=== PATIENT | male | born 1965 | race Caucasian/White ===

== ENCOUNTER 2019-07-23 06:51 | Emergency (ER) | payer OTHER, MEDICAID ==
[2019-07-23] MEDS ORDERED: Sodium Chloride 0.9% 1000 ML 1,000 ML IV STA (07:17)
[2019-07-23] MEDS ORDERED: Zofran 4 MG/2 ML VIAL IV ONE (07:19)
--- NOTE | 2019-07-23 07:21 | ERPHSYRPT ---
- History of Present Illness Time Seen by Provider: 07/23/19 07:17 Source: patient Exam Limitations: no limitations Patient Subjective Stated Complaint: cough, fever, sore throat, vomiting for about 4 days Triage Nursing Assessment: Pt walked into the ER, right lungs wheezy, vitals wnl , denies pain, denies diarrhea, last vomited at 0400, last food intake yesterday at 1100 Physician History: The patient is a 53-year-old male with a past medical history significant for insulin-dependent diabetes mellitus presents with a chief complaint of a subjective fever, cough, sore throat, headache, myalgias as her last Sunday, July 19, 2019. He also reports having nausea and vomiting over the last 12-24 hours. States that his fever has since resolved the last couple days in addition to his sore throat headache over he is concerned because of his nausea and inability to eat or drink given his history of diabetes. His immunizations are reportedly up-to-date includes influenza vaccine in addition to his pneumococcal vaccine. Smoking. States that last night he checked his for glucose and got a reading of 400. He's been taking any insulin today nor has he had any breakfast. He states that he tried to drink alcohol last night to sober ears but was unable to do so because of his nausea. His primary care provider is elevated at the [facility]. Timing/Duration: other (07/19/19) Cough Quality/Degree: dry cough Associated Symptoms: fever, chills, cough, headache, nasal congestion, No shortness of breath Allergies/Adverse Reactions: No Known Drug Allergies Allergy (Verified 07/23/19 07:07) Home Medications: Aspirin EC 81 mg [Ecotrin 81 mg] 81 mg PO DAILY 07/23/19 [History] Insulin Aspart [NovoLOG Insulin] 10 unit SQ QAM 07/23/19 [History] Insulin Glargine [Lantus Insulin] 32 unit SQ QAM 07/23/19 [History] Omeprazole Magnesium [Prilosec Otc] 20 mg PO DAILY 07/23/19 [History] Hx Influenza Vaccination/Date Given: Yes - Review of Systems Constitutional: Fever, Chills, No Weakness Eyes: No Eye Pain, No Eye Redness, No Photophobia, No Vision Changes Ears, Nose, & Throat: Nose Congestion, Throat Pain, No Ear Pain Respiratory: Cough, No Dyspnea, No Dyspnea on Exertion (NI), No Stridor, No Wheezing Cardiac: No Chest Pain, No Edema, No Palpitations, No Syncope, No Orthopnea Abdominal/Gastrointestinal: Nausea, Vomiting, No Abdominal Pain, No Constipation , No Hematemesis, No Hematochezia, No Melena Genitourinary Symptoms: No Dysuria, No Frequency, No Hematuria, No Hesitancy Musculoskeletal: Myalgias Skin: No Symptoms Neurological: No Symptoms Psychological: No Symptoms All Other Systems: Reviewed and Negative - Past Medical History Pertinent Past Medical History: Yes Endocrine Medical History: Diabetes Type II - Past Surgical History Past Surgical History: No - Social History Smoking Status: Former smoker Exposure to second hand smoke: No Drug Use: none Patient Lives Alone: Yes - Nursing Vital Signs Nursing Vital Signs: Initial Vital Signs Temperature 98.8 F 07/23/19 06:59 Pulse Rate 84 07/23/19 06:59 Blood Pressure 131/79 07/23/19 06:59 O2 Sat by Pulse Oximetry 95 07/23/19 06:59 Pain Scale Pain Intensity 4 - Physical Exam General Appearance: no apparent distress Eye Exam: PERRL/EOMI, eyes nml inspection Ears, Nose, Throat Exam: normal ENT inspection, TMs normal, pharynx normal, moist mucous membranes, No TM abnormal (R), No TM abnormal (L), No pharyngeal erythema, No tonsillar exudate Neck Exam: normal inspection, supple, No non-tender Respiratory Exam: normal breath sounds, airway intact, crackles/rales, No chest tenderness, No respiratory distress, No accessory muscle use Cardiovascular Exam: regular rate/rhythm, normal heart sounds, normal peripheral pulses, capillary refill <2 sec, No murmur, No friction rub, No gallop, No tachycardia Gastrointestinal/Abdomen Exam: soft Back Exam: normal inspection Extremity Exam: normal inspection Neurologic Exam: alert, oriented x 3 Skin Exam: normal color, warm, dry, No rash Lymphatic Exam: No adenopathy SpO2 Interpretation: normal SpO2: 95 O2 Delivery: Room Air - Course Nursing assessment & vital signs reviewed: Yes - Radiology Exams Chest X-ray Interpretation: Reviewed by me, Teleradiologist Report, Negative Ordered Tests: Medication Summary Discontinued Medications Generic Name Dose Route Start Last Admin Trade Name Freq PRN Reason Stop Dose Admin Sodium Chloride 1,000 mls @ 999 mls/hr 07/23/19 07:17 07/23/19 09:46 Sodium Chloride 0.9% 1000 Ml IV 07/23/19 08:17 Infused .Q1H1M STA Infusion Sodium Chloride Confirm 07/23/19 07:32 Sodium Chloride 0.9% 1000 Ml Administered 07/23/19 07:33 Dose 1,000 mls @ ud .ROUTE .STK-MED ONE Ondansetron HCl 4 mg 07/23/19 07:19 07/23/19 07:34 Zofran 4 Mg/2 Ml Vial IV 07/23/19 07:20 4 mg STAT ONE Administration Ondansetron HCl Confirm 07/23/19 07:32 Zofran 4 Mg/2 Ml Vial Administered 07/23/19 07:33 Dose 4 mg .ROUTE .STK-MED ONE Lab/Rad Data: Laboratory Result Diagrams 07/23/19 07:40 Laboratory Results 07/23/19 07/23/19 Range/Units 08:00 07:40 Sodium 133 L (137-145) mmol/L Potassium 3.9 (3.5-5.1) mmol/L Chloride 100 (98-107) mmol/L Carbon Dioxide 24 (22-30) mmol/L Anion Gap 13.2 (5-15) MEQ/L BUN 10 (9-20) mg/dL Creatinine 0.70 (0.66-1.25) mg/dL Estimated GFR > 60.0 ML/MIN Glucose 263 H (74-106) mg/dL Calcium 8.9 (8.4-10.2) mg/dL Urine Color YELLOW (YELLOW) Urine Appearance CLEAR (CLEAR) Urine pH 6.0 (5-6) Ur Specific [place] 1.022 (1.005-1.025) Urine Protein 30 (Negative) Urine Ketones TRACE (NEGATIVE) Urine Blood NEGATIVE (0-5) Abram/ul Urine Nitrite NEGATIVE (NEGATIVE) Urine Bilirubin NEGATIVE (NEGATIVE) Urine Urobilinogen 4 (0-1) mg/dL Ur Leukocyte Esterase NEGATIVE (NEGATIVE) Urine WBC (Auto) NONE (0-5) /HPF Urine RBC (Auto) NONE (0-2) /HPF U Epithel Cells (Auto) NONE (FEW) /HPF Urine Bacteria (Auto) NONE SEEN (NEGATIVE) /HPF Urine Mucus (Auto) SLIGHT (NEGATIVE) /HPF Urine Culture Reflexed NO (NO) Urine Glucose >=500 (NEGATIVE) mg/dL - Progress Progress: improved, unchanged Progress Note: 07/23/19 08:27 corrected sodium is 136. Blood Culture(s) Obtained: No Antibiotics given: No Counseled pt/family regarding: lab results, diagnosis, need for follow-up, rad results - Departure Departure Disposition: Home Clinical Impression: Nausea and vomiting, Viral URI with cough, Hyperglycemia Condition: Good Critical Care Time: No Referrals: DOCTOR,NO FAMILY [Primary Care Provider] - Instructions: Viral Upper Respiratory Infection, Adult (DC), Nausea and Vomiting, Adult (DC) Additional Instructions: please call and schedule an appointment with her primary care provider as needed. Please take the medication as prescribed including her insulin. Please eat for taking her insulin and check her sugar regularly throughout the day to make sure you are not becoming hypoglycemic. Plan of Treatment: nontoxic in appearance. The patient is outside of the 48 hr window for antiviral therapy for influenza and therefore will not test and recommend symptomatic treatment with antipyretics, antiemetics, and fluids given he is likely suffering from influenza. He was instructed to return if his symptoms become worse, specifically respiratory symptoms. He agrees with and verbally understood the discharge plan. Prescriptions: Ondansetron [Ondansetron Odt] 4 mg PO Q6-8HPRN PRN #20 tab.rapdis PRN Reason: Nausea/Vomiting
[2019-07-23] MEDS ORDERED: Sodium Chloride 0.9% 1000 ML 1,000 ML ONE (07:32)
[2019-07-23] MEDS ORDERED: Zofran 4 MG/2 ML VIAL ONE (07:32)
[2019-07-23 08:00] VITALS: PULSE 70
[2019-07-23 08:01] LABS: ANION GAP 13.2 MEQ/L (5-15); BLOOD UREA NITROGEN 10 mg/dL (9-20); CHLORIDE 100 mmol/L (98-107); Calcium 8.9 mg/dL (8.4-10.2); Carbon Dioxide 24 mmol/L (22-30); Glucose 263 mg/dL (74-106); Potassium 3.9 mmol/L (3.5-5.1); SODIUM 133 mmol/L (137-145)
[2019-07-23 08:04] LABS: Appearance CLEAR (CLEAR); Bilirubin NEGATIVE (NEGATIVE); Blood NEGATIVE Ery/ul (0-5); Glucose >=500 mg/dL (NEGATIVE); Ketones TRACE (NEGATIVE); Leukocyte Esterase NEGATIVE (NEGATIVE); Mucus SLIGHT /HPF (NEGATIVE); Nitrite NEGATIVE (NEGATIVE); Protein,Urine Dip 30 (Negative); Specific Gravity 1.022 (1.005-1.025); Urobilinogen 4 mg/dL (0-1)
[2019-07-23 08:07] LABS: Bacteria NONE SEEN /HPF (NEGATIVE)
[2019-07-23 10:33] VITALS: BP 141/89
--- NOTE | 2019-07-23 19:09 | XRAY ---
Indication: Cough. Comparison: None PA/lateral chest clear with incidental right nipple shadow. Heart is not enlarged. Bony thorax intact with mild degenerative changes. Version: Nonacute chest. Comment: Preliminary interpretation was made by [facility]. No critical discrepancy.
[2019-07-24 15:57] VITALS: O2SAT 95
== END 2019-07-23 10:46 | disposition home or self-care (01) ==
LOC: ED 06:51
DX: J06.9 Acute upper respiratory infection, unspecified (principal); R05 Cough; R11.10 Vomiting, unspecified; R11.2 Nausea with vomiting, unspecified; E11.65 Type 2 diabetes mellitus with hyperglycemia; Z79.899 Other long term (current) drug therapy
CPT/HCPCS: 36415; 71046; 80048; 81001; 82962; 96360; 96374; 99284; J2405

== ENCOUNTER 2021-10-15 12:19 | Emergency (ER) | payer MEDICAID, OTHER ==
[2021-10-15] MEDS ORDERED: XYLOCAINE 1% HCL 20 ML MDV IJ ONE (12:20)
[2021-10-15] MEDS ORDERED: Rocephin 1000 MG INJ IM ONE (12:41)
[2021-10-15] MEDS ORDERED: Zithromax 250 MG TABLET PO ONE (12:47)
[2021-10-15] MEDS ORDERED: Rocephin 1000 MG INJ ONE (12:48)
[2021-10-15] MEDS ORDERED: Zithromax 250 MG TABLET ONE (12:48)
--- NOTE | 2021-10-15 12:57 | ERPHSYRPT ---
- History of Present Illness Time Seen by Provider: 10/15/21 12:55 Source: patient Exam Limitations: no limitations Patient Subjective Stated Complaint: To er c/o partner was called with results her gonnorhea was posititve Triage Nursing Assessment: pt arrives p/w/d resp easy no difficulties Physician History: To er c/o partner was called with results her gonnorhea was posititve Pain Radiation: none Severity of Pain-Max: none Severity of Pain-Current: none Modifying Factors: Improves With: nothing Associated Symptoms: denies symptoms Prior abdominal problems: none Sexual intercourse history: multiple partners, known exposure to STD Allergies/Adverse Reactions: No Known Drug Allergies Allergy (Verified 10/15/21 12:35) Home Medications: Aspirin EC 81 mg [Ecotrin 81 mg] 81 mg PO DAILY 07/23/19 [History] Insulin Aspart [NovoLOG Insulin] 10 unit SQ QAM 07/23/19 [History] Insulin Glargine [Lantus Insulin] 32 unit SQ QAM 07/23/19 [History] Omeprazole Magnesium [Prilosec Otc] 20 mg PO DAILY 07/23/19 [History] Hx Influenza Vaccination/Date Given: Yes Travel Risk - International Travel Have you traveled outside of the country in past 3 weeks: No - Coronavirus Screening Are you exhibiting any of the following symptoms?: No Close contact with a COVID-19 positive Pt in past 14-21 Days: No - Vaccine Status Have you recieved a Covid-19 vaccination: Yes 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: 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 - Vaccination Dates Date of 2cond Vaccination (if applicable): june 2021 - Past Medical History Pertinent Past Medical History: Yes Endocrine Medical History: Diabetes Type II - Past Surgical History Past Surgical History: No - Social History Smoking Status: Former smoker Exposure to second hand smoke: No Drug Use: none Patient Lives Alone: Yes - Review of Systems Constitutional: No Fever, No Chills Eyes: No Symptoms Ears, Nose, & Throat: No Symptoms Respiratory: No Cough, No Dyspnea Cardiac: No Chest Pain, No Edema, No Syncope Abdominal/Gastrointestinal: No Abdominal Pain, No Nausea, No Vomiting, No Diarrhea Genitourinary Symptoms: No Dysuria Musculoskeletal: No Back Pain, No Neck Pain Skin: No Rash Neurological: No Dizziness, No Focal Weakness, No Sensory Changes Psychological: No Symptoms Endocrine: No Symptoms All Other Systems: Reviewed and Negative - Nursing Vital Signs Nursing Vital Signs: Pain Scale Pain Intensity 0 - Physical Exam General Appearance: no apparent distress, alert Eye Exam: PERRL/EOMI Ears, Nose, Throat Exam: pharynx normal, moist mucous membranes Neck Exam: normal inspection, supple Respiratory Exam: normal breath sounds, lungs clear Cardiovascular Exam: regular rate/rhythm, No edema Gastrointestinal/Abdomen Exam: soft, No tenderness Back Exam: normal inspection, No CVA tenderness Extremity Exam: normal inspection, normal range of motion, No pedal edema Neurologic Exam: alert, oriented x 3, cooperative, sensation nml, No motor deficits Skin Exam: normal color, warm, dry, No rash - Course Nursing assessment & vital signs reviewed: Yes Ordered Tests: Medication Summary Discontinued Medications Generic Name Dose Route Start Last Admin Trade Name Susy PRN Reason Stop Dose Admin Azithromycin 1,000 mg 10/15/21 12:47 Azithromycin 250 Mg Tablet PO 10/15/21 12:48 STAT ONE Azithromycin Confirm 10/15/21 12:48 Azithromycin 250 Mg Tablet Administered 10/15/21 12:49 Dose 1,000 mg .ROUTE .STK-MED ONE Ceftriaxone Sodium 1,000 mg 10/15/21 12:41 Ceftriaxone Sodium 1000 Mg Inj Vial IM 10/15/21 12:42 STAT ONE Ceftriaxone Sodium Confirm 10/15/21 12:48 Ceftriaxone Sodium 1000 Mg Inj Vial Administered 10/15/21 12:49 Dose 1,000 mg .ROUTE .STK-MED ONE - Progress Progress: unchanged Counseled pt/family regarding: diagnosis, need for follow-up - Departure Departure Disposition: Home Clinical Impression: Exposure to gonorrhea Condition: Stable Critical Care Time: No Referrals: DOCTOR,NO FAMILY [Primary Care Provider] - Follow Up with PCP/3 days Instructions: Screening for Sexually Transmitted Infections, Gonorrhea (DC), Chlamydia and Gonorrhea Additional Instructions: Discharge/Care Plan RADHA CUEVAS was seen on 10/15/21 in the Emergency Room. The patient was counseled regarding Diagnosis,Lab results, Imaging studies, need for follow up and when to return to the Emergency Room. Prescriptions given: Discharge Note I have spoken with the patient and/or caregivers. I have explained the patient's condition, diagnosis and treatment plan based on the information available to me at this time. I have answered the patient's and/or caregiver's questions and addressed any concerns. The patient and/or caregivers have as good understanding of the patient's diagnosis, condition and treatment plan as can be expected at this point. The vital signs have been stable. The patient's condition is stable and appropriate for discharge from the emergency department. The patient will pursue further outpatient evaluation with the primary care physician or other designated or consulting physician as outlined in the discharge instructions. The patient and/or caregivers are agreeable to this plan of care and follow-up instructions have been explained in detail. The patient and/or caregivers have received these instruction. The patient/and or caregivers are aware that any significant change in condition or worsening of symptoms should prompt an immediate return to this or the closest emergency department or call 911. RADHA CUEVAS was seen on 10/15/21 n the Emergency Room. At that time you were treated for an emergent condition, during your visit Laboratory, Radiology and/or other procedures may have been ordered. It is very important that you follow-up with your Primary Care Physician NO FAMILY DOCTOR within the next 24- 48 hours to review your Emergency Room visit and the final results of testing that was ordered. Some test results such as Urine Cultures, Blood Cultures, and other cultures if ordered will not be finalized for 24-48 hours. If you do not have a Primary Care Provider please call the medical records department at [phone] ext [phone] to obtain a copy of your results or you may sign into our patient portal to obtain these results by visiting us @ [email or web address] and completing the following steps: 1. Click on the Patient Portal link 2. Click the Patient Self Enrollment Link to complete the enrollment form and entering your 3. Once the enrollment form is completed you will receive an email with a temporary ID and password at the email address you provided. 4. Next choose a user name and password. Your user name must be at least 4 characters long and your password must be at least 4 characters long. 5. Choose a security question from the list and provide your answer to the question. If you already have signed into the Health Portal you may access your Health Care Information 12/02 by the following steps: 1. Login to our website @ [email or web address] 2. Enter your original user name and password. FAQS The [facility] Health Portal is an online tool that contains your Lab Results, Radiology Reports, Visit History, Discharge Instructions and Health Summary Lab and Radiology Results will not be available for 72 hours on the portal. The Portal is a secure site, passwords are encryted and URLs are re-written so they cannot be copied and pasted. You and authorized family members are the only ones who can access your Portal. Also there is a timeout feature that protects your information if you leave the Portal page open. If you have technical difficulty please use the Contact Us link on the page this will allow you to submit any questions you have regarding the Portal or you may contact the Medical Record Department at [phone].
[2021-10-15 13:15] VITALS: BP 139/74; PULSE 89
== END 2021-10-15 13:16 | disposition home or self-care (01) ==
LOC: ED 12:19
DX: Z20.2 Contact with and (suspected) exposure to infections with a predominantly sexual mode of transmission (principal); E11.9 Type 2 diabetes mellitus without complications; Z79.4 Long term (current) use of insulin
CPT/HCPCS: 96372; 99283; J0696; A9270-GY

== ENCOUNTER 2022-01-12 23:00 | Inpatient (IN) | payer OTHER ==
[2022-01-12] MEDS ORDERED: TYLENOL EXTRA STRENGTH 500 MG ONE (23:08)
[2022-01-12] MEDS ORDERED: Sodium Chloride 0.9% 1000 ML 1,000 ML IV STA (23:12)
[2022-01-12] MEDS ORDERED: Zofran 4 MG/2 ML VIAL IV ONE (23:12)
[2022-01-12] MEDS ORDERED: TYLENOL EXTRA STRENGTH 500 MG PO ONE (23:15)
[2022-01-12] MEDS ORDERED: Sodium Chloride 0.9% 1000 ML 1,000 ML ONE (23:17)
--- NOTE | 2022-01-12 23:20 | ERPHSYRPT ---
- History of Present Illness Time Seen by Provider: 01/12/22 23:11 Source: patient Exam Limitations: no limitations Physician History: 56-year-old male with a history of diabetes mellitus presented in the ER with 5- day history of having off-and-on abdominal pain with nausea and vomiting which is improved but still have cough productive of clear to yellow sputum with ge neralized body aches fatigue tiredness. Patient reports he is not able to eat or drink anything and is having weakness to the point that he can hardly get up and ambulate. On EMS arrival patient has a blood sugar of 591 and has not been taking his antidiabetic medication for the last few days. Timing/Duration: day(s) (5), gradual onset, worse Severity: moderate Associated Symptoms: nausea, vomiting, abdominal pain, cough, chills, fever, loss of appetite, malaise, weakness Allergies/Adverse Reactions: No Known Drug Allergies Allergy (Verified 01/13/22 04:39) Home Medications: Aspirin EC 81 mg [Ecotrin 81 mg] 81 mg PO DAILY 07/23/19 [History] Insulin Aspart [NovoLOG Insulin] 10 unit SQ QAM 07/23/19 [History] Insulin Glargine [Lantus Insulin] 32 unit SQ QAM 07/23/19 [History] Omeprazole Magnesium [Prilosec Otc] 20 mg PO DAILY 07/23/19 [History] Cetirizine HCl [Zyrtec] 10 mg PO DAILY 01/13/22 [History] Fluticasone Propionate [Flonase NASAL] 2 spray NS DAILY 01/13/22 [History] Lisinopril 10 mg [Zestril 10 MG] 5 mg PO DAILY 01/13/22 [History] Simvastatin 20 mg PO QHS 01/13/22 [History] Hx Influenza Vaccination/Date Given: Yes Travel Risk - Vaccine Status Have you recieved a Covid-19 vaccination: Yes Bundle Breaker: Moderna - Vaccination Dates Date of 2cond Vaccination (if applicable): june 2021 - Review of Systems Constitutional: Fever, Chills, Fatigue, Weakness Eyes: No Symptoms Ears, Nose, & Throat: No Symptoms Respiratory: Cough, Wheezing Cardiac: No Symptoms Abdominal/Gastrointestinal: Abdominal Pain, Nausea, Vomiting Genitourinary Symptoms: No Symptoms Musculoskeletal: Myalgias Skin: No Symptoms Neurological: No Symptoms Psychological: No Symptoms Endocrine: No Symptoms Hematologic/Lymphatic: No Symptoms Immunological/Allergic: No Symptoms - Past Medical History Pertinent Past Medical History: Yes Endocrine Medical History: Diabetes Type II - Past Surgical History Past Surgical History: No - Social History Smoking Status: Former smoker Exposure to second hand smoke: No Drug Use: none Patient Lives Alone: Yes - Nursing Vital Signs Nursing Vital Signs: Initial Vital Signs Temperature 100.1 F 01/12/22 23:17 Pulse Rate 97 H 01/12/22 23:17 Respiratory Rate 24 01/12/22 23:17 Blood Pressure 132/90 01/12/22 23:17 O2 Sat by Pulse Oximetry 97 01/12/22 23:17 Pain Scale Pain Intensity 0 - Physical Exam General Appearance: no apparent distress, alert Eye Exam: PERRL/EOMI, eyes nml inspection Ears, Nose, Throat Exam: normal ENT inspection, dry mucous membranes, pharyngeal erythema Neck Exam: normal inspection, non-tender, supple, full range of motion Respiratory Exam: normal breath sounds, rhonchi, wheezing Cardiovascular Exam: normal heart sounds, tachycardia Gastrointestinal/Abdomen Exam: soft, normal bowel sounds, tenderness (Mild gene ralized) Back Exam: normal inspection, normal range of motion Extremity Exam: normal inspection, normal range of motion Neurologic Exam: alert, oriented x 3, cooperative Skin Exam: normal color SpO2 Interpretation: normal SpO2: 95 O2 Delivery: Room Air - Course EKG Interpreted by Me: RATE ([id number]), Sinus Tach, NORMAL AXIS, NORMAL INTERVALS, Q- wave, Non-specific ST Changes Ordered Tests: Medication Summary Generic Name Dose Route Start Last Admin Trade Name Freq PRN Reason Stop Dose Admin Acetaminophen 650 mg 01/13/22 03:40 Acetaminophen 325 Mg Tablet PO 02/12/22 03:39 Q4H PRN PRN PAIN AND/OR FEVER Albuterol Sulfate 4 puff 01/14/22 14:34 Albuterol Common Canister Inhaler IH 02/13/22 14:33 Q4H PRN PRN SHORTNESS OF BREATH/WHEEZING Aspirin 81 mg 01/13/22 13:00 01/15/22 09:21 Aspirin 81 Mg Tablet.Ec PO 02/12/22 12:59 81 mg DAILY MORIAH Administration Benzonatate 200 mg 01/13/22 06:44 01/13/22 08:20 Benzonatate 100 Mg Capsule PO 02/12/22 06:43 200 mg Q6H PRN PRN Administration COUGH Chlorphenir/Hydrocodone Polistirex 5 ml 01/13/22 12:22 Hydrocodone/Chlorphen P-Stirex 1 Ml Monie.Er.12h PO 02/12/22 12:21 [id number] PRN Dexamethasone Sodium Phosphate 8 mg 01/13/22 13:00 01/15/22 09:21 Dexamethasone Sod Phosphate 4 Mg/Ml Ml IV 01/22/22 10:01 8 mg DAILY MORIAH Administration Diphenhydramine/Hydrocorti/Nystatin 30 ml 01/14/22 14:30 01/15/22 10:56 Nystatin/Tcn/Hc/Diphenhydramin 237 Ml Bottle PO 02/13/22 14:29 30 ml Q6HT MORIAH Administration Enoxaparin Sodium 40 mg 01/13/22 10:00 01/15/22 09:21 Enoxaparin Sodium 40 Mg/0.4 Ml Syringe SQ 02/12/22 09:59 40 mg DAILY MORIAH Administration Fluticasone Propionate 0 gm 01/13/22 13:00 01/15/22 09:18 Fluticasone Propionate 16 Gm Bottle Nasal [place] NS 02/12/22 12:59 1 gm DAILY MORIAH Administration Guaifenesin 1,200 mg 01/15/22 10:00 01/15/22 10:55 Guaifenesin 600 Mg Tablet Er PO 02/14/22 09:59 1,200 mg BID MORIAH Administration Piperacillin Sod/Tazobactam 100 mls @ 200 mls/hr 01/13/22 06:00 01/15/22 10:55 Sod 3.375 gm/ Sodium Chloride IV 01/17/22 05:59 200 mls/hr Q6HT MORIAH Administration Remdesivir 100 mg/ Sodium 100 mls @ 100 mls/hr 01/14/22 10:00 01/15/22 09:18 Chloride IV 01/17/22 10:59 100 mls/hr DAILY MORIAH Administration Potassium Chloride/Sodium Chloride 1,000 mls @ 120 mls/hr 01/14/22 00:30 01/15/22 10:55 Sodium Chloride 0.9% W/ 20 Meq Kcl/Liter IV 02/13/22 00:29 120 mls/hr .Q8H20M MORIAH Administration Insulin Glargine 32 unit 01/13/22 10:00 01/15/22 09:22 Insulin Glargine 1 Unit SQ 02/12/22 09:59 32 unit QAM MORIAH Administration Insulin Human Lispro 0 unit 01/13/22 08:00 01/15/22 12:31 Insulin Lispro 1 Unit SQ 02/12/22 07:59 9 unit UD PRN Administration HYPERGLYCEMIA Insulin Human Lispro 10 unit 01/13/22 13:00 01/15/22 12:31 Insulin Lispro 1 Unit SQ 02/12/22 12:59 10 unit TIDWM MORIAH Administration Lisinopril 5 mg 01/13/22 13:00 01/15/22 09:19 Lisinopril 5 Mg Tablet PO 02/12/22 12:59 5 mg DAILY MORIAH Administration Loratadine 10 mg 01/13/22 13:00 01/15/22 09:21 Loratadine 10 Mg Tablet PO 02/12/22 12:59 10 mg DAILY MORIAH Administration Lorazepam 1 mg 01/13/22 12:22 Lorazepam 1 Mg Tablet PO 02/12/22 12:21 Q4H PRN PRN ANXIETY/SLEEP Lorazepam 1 mg 01/13/22 12:22 Lorazepam 2 Mg/1 Ml 2 Mg Vial IV 02/12/22 12:21 Q4H PRN PRN ANXIETY/SLEEP Metoclopramide HCl 5 mg 01/13/22 14:21 01/14/22 20:06 Metoclopramide Hcl 10 Mg Tablet PO 02/12/22 14:20 5 mg Q6H PRN PRN Administration HICCUPS Morphine Sulfate 2 mg 01/13/22 03:40 Morphine Sulfate 2 Mg/Ml Inj IV 01/18/22 03:39 Q4H PRN PRN PAIN Ondansetron HCl 4 mg 01/13/22 03:40 Ondansetron Hcl 4 Mg/2 Ml Vial IV 02/12/22 03:39 Q6H PRN PRN NAUSEA/VOMITING Pantoprazole Sodium 40 mg 01/14/22 10:00 01/15/22 09:21 Protonix (Pantoprazole) 40 Mg Tablet PO 02/13/22 09:59 40 mg DAILY MORIAH Administration Potassium Chloride 25 meq 01/14/22 10:00 01/15/22 09:19 Potassium Chloride Tab 10 Meq Tab PO 02/13/22 09:59 25 meq DAILY MORIAH Administration Simvastatin 20 mg 01/13/22 22:00 01/14/22 22:42 Simvastatin 20 Mg Tablet PO 02/12/22 21:59 20 mg QHS MORIAH Administration Discontinued Medications Generic Name Dose Route Start Last Admin Trade Name Micheletq PRN Reason Stop Dose Admin Acetaminophen Confirm 01/12/22 23:08 Acetaminophen 500 Mg Tablet Administered 01/12/22 23:09 Dose 1,000 mg .ROUTE .STK-MED ONE Acetaminophen 1,000 mg 01/12/22 23:15 01/12/22 23:16 Acetaminophen 500 Mg Tablet PO 01/12/22 23:16 1,000 mg STAT ONE Administration Albuterol Sulfate 4 puff 01/13/22 07:00 01/14/22 14:33 Albuterol Common Canister Inhaler IH 02/12/22 06:59 Not Given QIDRT MORIAH Diphenhydramine/Hydrocorti/Nystatin 30 ml 01/14/22 12:30 Nystatin/Tcn/Hc/Diphenhydramin 237 Ml Bottle PO 02/13/22 12:29 Q6H MORIAH Sodium Chloride 1,000 mls @ 999 mls/hr 01/12/22 23:12 01/13/22 00:59 Sodium Chloride 0.9% 1000 Ml IV 01/13/22 00:12 Infused .Q1H1M STA Infusion Sodium Chloride Confirm 01/12/22 23:17 Sodium Chloride 0.9% 1000 Ml Administered 01/12/22 23:18 Dose 1,000 mls @ ud .ROUTE .STK-MED ONE Piperacillin Sod/Tazobactam 100 mls @ 200 mls/hr 01/13/22 00:25 01/13/22 00:35 Sod 3.375 gm/ Sodium Chloride IV 01/13/22 00:54 200 mls/hr STAT ONE Administration Insulin Human Regular 100 unit 100 mls @ 7.11 mls/hr 01/13/22 00:26 01/13/22 06:30 / Sodium Chloride IV 02/12/22 00:25 0 unit/kg/hr .Q14H4M PRN 0 mls/hr DKA/HYPERGLYCEMIA Titration Protocol 0.1 UNIT/KG/HR Sodium Chloride Confirm 01/13/22 00:33 Sodium Chloride 100ml Mini-Bag Plus Administered 01/13/22 00:34 Dose 100 mls @ ud IV .STK-MED ONE Sodium Chloride Confirm 01/13/22 00:33 Sodium Chloride 0.9% Administered 01/13/22 00:34 Dose 100 mls @ ud .ROUTE .STK-MED ONE Remdesivir 200 mg/ Sodium 250 mls @ 125 mls/hr 01/13/22 00:59 01/13/22 06:20 Chloride IV 01/13/22 02:58 125 mls/hr ONCE ONE Administration Levofloxacin/Dextrose 750 mg in 150 mls @ 100 mls/hr 01/13/22 00:59 01/13/22 03:03 Levofloxacin 750mg/150ml D5w IV 01/13/22 02:28 Infused STAT STA Infusion Sodium Chloride Confirm 01/13/22 01:14 Sodium Chloride 0.9% 1000 Ml Administered 01/13/22 01:15 Dose 1,000 mls @ ud .ROUTE .STK-MED ONE Levofloxacin/Dextrose Confirm 01/13/22 01:25 Levofloxacin 750mg/150ml D5w Administered 01/13/22 01:26 Dose 750 mg in 150 mls @ ud IV .STK-MED ONE Levofloxacin/Dextrose 500 mg in 100 mls @ 100 mls/hr 01/13/22 22:00 01/13/22 22:16 Levofloxacin 500mg/100ml D5w IV 02/12/22 21:59 100 mls/hr HS MORIAH Administration Sodium Chloride 1,000 mls @ 200 mls/hr 01/13/22 05:30 Sodium Chloride 0.9% 1000 Ml IV 02/12/22 05:29 .Q5H MORIAH Sodium Chloride 1,000 mls @ 150 mls/hr 01/13/22 05:30 01/13/22 22:55 Sodium Chloride 0.9% 1000 Ml IV 02/12/22 05:29 Infused .Q6H40M MORIAH Infusion Sodium Chloride Confirm 01/13/22 05:48 Sodium Chloride 0.9% 250 Ml Administered 01/13/22 05:49 Dose 250 mls @ ud IV .STK-MED ONE Sodium Chloride Confirm 01/13/22 07:05 Sodium Chloride 100ml Mini-Bag Plus Administered 01/13/22 07:06 Dose 100 mls @ ud IV .STK-MED ONE Remdesivir 100 mg/ Sodium 100 mls @ 100 mls/hr 01/13/22 10:00 01/13/22 10:55 Chloride IV 01/16/22 10:59 Not Given DAILY MORIAH Potassium Chloride 20 meq in 100 mls @ 50 mls/hr 01/13/22 15:53 01/13/22 16:15 Potassium Chloride 20 Meq In Water 100ml IV 01/13/22 17:52 50 mls/hr STAT ONE Administration Insulin Human Regular Confirm 01/13/22 00:33 Insulin Regular, Human 1 Unit Administered 01/13/22 00:34 Dose 100 unit .ROUTE .STK-MED ONE Ondansetron HCl 4 mg 01/12/22 23:12 01/12/22 23:29 Ondansetron Hcl 4 Mg/2 Ml Vial IV 01/12/22 23:13 4 mg STAT ONE Administration Ondansetron HCl Confirm 01/12/22 23:25 Ondansetron Hcl 4 Mg/2 Ml Vial Administered 01/12/22 23:26 Dose 4 mg .ROUTE .STK-MED ONE Pantoprazole Sodium 40 mg 01/13/22 10:00 01/13/22 10:13 Pantoprazole 40 Mg Vial IV 02/12/22 09:59 40 mg Q24H10 MORIAH Administration Piperacillin Sod/Tazobactam Sod Confirm 01/13/22 00:33 Piperacillin/Tazobactam Sodium 3.375 Gm Vial Administered 01/13/22 00:34 Dose 3.375 gm IV .STK-MED ONE Piperacillin Sod/Tazobactam Sod Confirm 01/13/22 07:04 Piperacillin/Tazobactam Sodium 3.375 Gm Vial Administered 01/13/22 07:05 Dose 3.375 gm IV .STK-MED ONE Potassium Chloride 25 meq 01/13/22 15:51 01/13/22 16:14 Potassium Chloride Tab 10 Meq Tab PO 01/13/22 15:52 25 meq STAT ONE Administration Remdesivir Confirm 01/13/22 05:48 Remdesivir 100 Mg Vial Administered 01/13/22 05:49 Dose 200 mg IV .STK-MED ONE Lab/Rad Data: Laboratory Result Diagrams 01/12/22 23:12 06/23/22 23:12 Laboratory Results 01/13/22 01/13/22 01/13/22 Range/Units 03:27 02:28 02:23 WBC (4.0-10.5) x10^3/uL RBC (4.1-5.6) x10^6/uL Hgb (12.5-18.0) g/dL Hct (42-50) % MCV (78-100) fL MCH (26-32) pg MCHC (32-36) g/dL RDW (11.5-14.0) % Plt Count (150-450) x10^3/uL MPV (7.5-11.0) fL Segmented Neutrophils (36.-66.) % Band Neutrophils (0.0-2.0) % Monocytes (Manual) (0.0-12.0) % Platelet Estimate (NORMAL) RBC Morphology Poikilocytosis Anisocytosis Jay Em Cells D-Dimer (0.0-0.50) mg/L pO2/FiO2 Ratio % VBG pH (7.32-7.42) VBG pCO2 at Pat Temp (42-55) mm/Hg VBG pO2 at Pat Temp (25-40) mm/Hg VBG HCO3 (22-28) meq/L VBG O2 Sat (Jany) (95-100) VBG Base Excess (-2.0-2.0) VBG Hemoglobin VBG Carboxyhemoglobin (0.0-6.9) % T HGB POC Potassium (3.5-5.1) Sodium (137-145) mmol/L Potassium (3.5-5.1) mmol/L Chloride (98-107) mmol/L Carbon Dioxide (22-30) mmol/L Anion Gap (5-15) MEQ/L BUN (9-20) mg/dL Creatinine (0.66-1.25) mg/dL Estimated GFR ML/MIN Glucose (74-106) mg/dL POC Glucometer 320 H 411 H (50 to 500) mg/dL Lactic Acid (0.4-2.0) Calcium (8.4-10.2) mg/dL Phosphorus 1.8 L (2.5-4.5) mg/dL Magnesium (1.6-2.3) mg/dL Total Bilirubin (0.2-1.3) mg/dL AST (17-59) U/L ALT (0-50) U/L Alkaline Phosphatase (38-126) U/L Serum Total Protein (6.3-8.2) g/dL Albumin (3.5-5.0) g/dL Lipase (23-300) U/L Procalcitonin (0.030-0.080) ng/mL Urinalys Dipstick Clnc Urine Color (YELLOW) Urine Appearance (CLEAR) Urine pH (5-6) Ur Specific [place] (1.005-1.025) POC Urine Protein Conf (Negative) Urine Ketones (NEGATIVE) Urine Nitrite (NEGATIVE) Urine Bilirubin (NEGATIVE) Urine Urobilinogen (0-1) mg/dL Urine Leukocytes (NEGATIVE) Urine WBC (Auto) (0-5) /HPF Urine RBC (Auto) (0-2) /HPF U Epithel Cells (Auto) (FEW) /HPF Urine Bacteria (Auto) (NEGATIVE) /HPF Urine RBC (0-5) Abram/ul Ur Culture Indicated? Urine Glucose (NEGATIVE) mg/dL Influenza Type A Ag (NEGATIVE) Influenza Type B Ag (NEGATIVE) RSV (PCR) (Negative) SARS-CoV-2 (PCR) (NEGATIVE) 01/13/22 01/13/22 01/13/22 Range/Units 02:05 01:24 01:16 WBC (4.0-10.5) x10^3/uL RBC (4.1-5.6) x10^6/uL Hgb (12.5-18.0) g/dL Hct (42-50) % MCV (78-100) fL MCH (26-32) pg MCHC (32-36) g/dL RDW (11.5-14.0) % Plt Count (150-450) x10^3/uL MPV (7.5-11.0) fL Segmented Neutrophils (36.-66.) % Band Neutrophils (0.0-2.0) % Monocytes (Manual) (0.0-12.0) % Platelet Estimate (NORMAL) RBC Morphology Poikilocytosis Anisocytosis Pete Cells D-Dimer 3.98 H* (0.0-0.50) mg/L pO2/FiO2 Ratio % VBG pH (7.32-7.42) VBG pCO2 at Pat Temp (42-55) mm/Hg VBG pO2 at Pat Temp (25-40) mm/Hg VBG HCO3 (22-28) meq/L VBG O2 Sat (Jany) (95-100) VBG Base Excess (-2.0-2.0) VBG Hemoglobin VBG Carboxyhemoglobin (0.0-6.9) % T HGB POC Potassium (3.5-5.1) Sodium (137-145) mmol/L Potassium (3.5-5.1) mmol/L Chloride (98-107) mmol/L Carbon Dioxide (22-30) mmol/L Anion Gap (5-15) MEQ/L BUN (9-20) mg/dL Creatinine (0.66-1.25) mg/dL Estimated GFR ML/MIN Glucose (74-106) mg/dL POC Glucometer 515 H* (50 to 500) mg/dL Lactic Acid 2.7 H (0.4-2.0) Calcium (8.4-10.2) mg/dL Phosphorus (2.5-4.5) mg/dL Magnesium (1.6-2.3) mg/dL Total Bilirubin (0.2-1.3) mg/dL AST (17-59) U/L ALT (0-50) U/L Alkaline Phosphatase (38-126) U/L Serum Total Protein (6.3-8.2) g/dL Albumin (3.5-5.0) g/dL Lipase (23-300) U/L Procalcitonin (0.030-0.080) ng/mL Urinalys Dipstick Clnc Urine Color (YELLOW) Urine Appearance (CLEAR) Urine pH (5-6) Ur Specific [place] (1.005-1.025) POC Urine Protein Conf (Negative) Urine Ketones (NEGATIVE) Urine Nitrite (NEGATIVE) Urine Bilirubin (NEGATIVE) Urine Urobilinogen (0-1) mg/dL Urine Leukocytes (NEGATIVE) Urine WBC (Auto) (0-5) /HPF Urine RBC (Auto) (0-2) /HPF U Epithel Cells (Auto) (FEW) /HPF Urine Bacteria (Auto) (NEGATIVE) /HPF Urine RBC (0-5) Abram/ul Ur Culture Indicated? Urine Glucose (NEGATIVE) mg/dL Influenza Type A Ag (NEGATIVE) Influenza Type B Ag (NEGATIVE) RSV (PCR) (Negative) SARS-CoV-2 (PCR) (NEGATIVE) 01/13/22 01/12/22 01/12/22 Range/Units 00:01 23:50 23:50 WBC (4.0-10.5) x10^3/uL RBC (4.1-5.6) x10^6/uL Hgb (12.5-18.0) g/dL Hct (42-50) % MCV (78-100) fL MCH (26-32) pg MCHC (32-36) g/dL RDW (11.5-14.0) % Plt Count (150-450) x10^3/uL MPV (7.5-11.0) fL Segmented Neutrophils (36.-66.) % Band Neutrophils (0.0-2.0) % Monocytes (Manual) (0.0-12.0) % Platelet Estimate (NORMAL) RBC Morphology Poikilocytosis Anisocytosis Pete Cells D-Dimer (0.0-0.50) mg/L pO2/FiO2 Ratio 21.0 % VBG pH 7.35 (7.32-7.42) VBG pCO2 at Pat Temp 28 L (42-55) mm/Hg VBG pO2 at Pat Temp 42 H (25-40) mm/Hg VBG HCO3 15.5 L* (22-28) meq/L VBG O2 Sat (Jnay) 70.8 L (95-100) VBG Base Excess -8.6 L (-2.0-2.0) VBG Hemoglobin 13.3 VBG Carboxyhemoglobin 4.1 (0.0-6.9) % T HGB POC Potassium 4.5 (3.5-5.1) Sodium (137-145) mmol/L Potassium (3.5-5.1) mmol/L Chloride (98-107) mmol/L Carbon Dioxide (22-30) mmol/L Anion Gap (5-15) MEQ/L BUN (9-20) mg/dL Creatinine (0.66-1.25) mg/dL Estimated GFR ML/MIN Glucose (74-106) mg/dL POC Glucometer (50 to 500) mg/dL Lactic Acid 4.4 H (0.4-2.0) Calcium (8.4-10.2) mg/dL Phosphorus (2.5-4.5) mg/dL Magnesium (1.6-2.3) mg/dL Total Bilirubin (0.2-1.3) mg/dL AST (17-59) U/L ALT (0-50) U/L Alkaline Phosphatase (38-126) U/L Serum Total Protein (6.3-8.2) g/dL Albumin (3.5-5.0) g/dL Lipase (23-300) U/L Procalcitonin (0.030-0.080) ng/mL Urinalys Dipstick Clnc MAIN LAB Urine Color YELLOW (YELLOW) Urine Appearance CLEAR (CLEAR) Urine pH 5.5 (5-6) Ur Specific [place] 1.010 (1.005-1.025) POC Urine Protein Conf TRACE (Negative) Urine Ketones SMALL-15 (NEGATIVE) Urine Nitrite NEGATIVE (NEGATIVE) Urine Bilirubin NEGATIVE (NEGATIVE) Urine Urobilinogen 0.2 (0-1) mg/dL Urine Leukocytes NEGATIVE (NEGATIVE) Urine WBC (Auto) NONE (0-5) /HPF Urine RBC (Auto) 0-2 (0-2) /HPF U Epithel Cells (Auto) NONE (FEW) /HPF Urine Bacteria (Auto) NONE (NEGATIVE) /HPF Urine RBC MODERATE (0-5) Abram/ul Ur Culture Indicated? YES Urine Glucose 500 (NEGATIVE) mg/dL Influenza Type A Ag NEGATIVE (NEGATIVE) Influenza Type B Ag NEGATIVE (NEGATIVE) RSV (PCR) NEGATIVE (Negative) SARS-CoV-2 (PCR) POSITIVE A (NEGATIVE) 01/12/22 01/12/22 01/12/22 Range/Units 23:30 23:12 23:12 WBC 23.9 H (4.0-10.5) x10^3/uL RBC 4.33 (4.1-5.6) x10^6/uL Hgb 11.8 L (12.5-18.0) g/dL Hct 34.5 L (42-50) % MCV 79.7 (78-100) fL MCH 27.3 (26-32) pg MCHC 34.2 (32-36) g/dL RDW 17.9 H (11.5-14.0) % Plt Count 214 (150-450) x10^3/uL MPV 12.7 H (7.5-11.0) fL Segmented Neutrophils 88 H (36.-66.) % Band Neutrophils 10 H (0.0-2.0) % Monocytes (Manual) 2 (0.0-12.0) % Platelet Estimate NORMAL (NORMAL) RBC Morphology ABNORMAL Poikilocytosis 1+ Anisocytosis 2+ Pete Cells 1+ D-Dimer (0.0-0.50) mg/L pO2/FiO2 Ratio % VBG pH (7.32-7.42) VBG pCO2 at Pat Temp (42-55) mm/Hg VBG pO2 at Pat Temp (25-40) mm/Hg VBG HCO3 (22-28) meq/L VBG O2 Sat (Jany) (95-100) VBG Base Excess (-2.0-2.0) VBG Hemoglobin VBG Carboxyhemoglobin (0.0-6.9) % T HGB POC Potassium (3.5-5.1) Sodium 128 L (137-145) mmol/L Potassium 4.2 (3.5-5.1) mmol/L Chloride 95 L (98-107) mmol/L Carbon Dioxide 16 L* (22-30) mmol/L Anion Gap 21.4 H (5-15) MEQ/L BUN 31 H (9-20) mg/dL Creatinine 1.06 (0.66-1.25) mg/dL Estimated GFR > 60.0 ML/MIN Glucose 619 H* (74-106) mg/dL POC Glucometer (50 to 500) mg/dL Lactic Acid (0.4-2.0) Calcium 8.6 (8.4-10.2) mg/dL Phosphorus (2.5-4.5) mg/dL Magnesium 2.7 H (1.6-2.3) mg/dL Total Bilirubin 1.50 H (0.2-1.3) mg/dL AST 232 H (17-59) U/L ALT 116 H (0-50) U/L Alkaline Phosphatase 299 H (38-126) U/L Serum Total Protein 7.0 (6.3-8.2) g/dL Albumin 3.1 L (3.5-5.0) g/dL Lipase 17 L (23-300) U/L Procalcitonin 11.400 H* (0.030-0.080) ng/mL Urinalys Dipstick Clnc Urine Color (YELLOW) Urine Appearance (CLEAR) Urine pH (5-6) Ur Specific [place] (1.005-1.025) POC Urine Protein Conf (Negative) Urine Ketones (NEGATIVE) Urine Nitrite (NEGATIVE) Urine Bilirubin (NEGATIVE) Urine Urobilinogen (0-1) mg/dL Urine Leukocytes (NEGATIVE) Urine WBC (Auto) (0-5) /HPF Urine RBC (Auto) (0-2) /HPF U Epithel Cells (Auto) (FEW) /HPF Urine Bacteria (Auto) (NEGATIVE) /HPF Urine RBC (0-5) Abram/ul Ur Culture Indicated? Urine Glucose (NEGATIVE) mg/dL Influenza Type A Ag (NEGATIVE) Influenza Type B Ag (NEGATIVE) RSV (PCR) (Negative) SARS-CoV-2 (PCR) (NEGATIVE) - Progress Progress: improved, re-examined Progress Note: 01/13/22 00:57 56-year-old is evaluated for nausea vomiting, cough and fever chills with decreased oral intake. Patient was tachycardic on presentation, given fluid bolus, on reevaluation his heart rate and blood pressure is improved. Work-up showed white count of 24 with blood glucose 619, gap of 21 and bicarb of 16. Patient also has lactate of 4.4 with procalcitonin of 11.9. Started him on broad-spectrum antibiotics. He is also started on insulin per protocol. Patient has a positive COVID-19 and will be started on remdesivir and will hold off on Decadron as it will worsen the hyperglycemia. Discussed with Dr. June and patient is admitted Discussed with .: Silver Will see patient in: hospital (full admit) Counseled pt/family regarding: lab results, diagnosis, rad results - Departure Departure Disposition: In-patient Admission Clinical Impression: DKA (diabetic ketoacidosis), COVID-19 virus detected, Sepsis, Enteritis Pneumonia Qualifiers: Laterality: right Condition: Fair Critical Care Time: Yes Critical Care Time(excluding separately billable procedures): Critical 30-74 mins
[2022-01-12] MEDS ORDERED: Zofran 4 MG/2 ML VIAL ONE (23:25)
[2022-01-12 23:51] LABS: Hematocrit 34.5 % (42-50); Hemoglobin 11.8 g/dL (12.5-18.0); Mean Cell Volume 79.7 fL (78-100); Mean Corpuscular Hemoglobin 27.3 pg (26-32); Mean Corpuscular Hgb Concent. 34.2 g/dL (32-36); Mean Platelet Volume 12.7 fL (7.5-11.0); Platelet Count 214 x10^3/uL (150-450); Red Blood Count 4.33 x10^6/uL (4.1-5.6); Red Cell Distribution Width 17.9 % (11.5-14.0); White Blood Count 23.9 x10^3/uL (4.0-10.5)
[2022-01-13 00:05] LABS: Lactic Acid 4.4 (0.4-2.0); VBG BASE EXCESS -8.6 (-2.0-2.0); VBG CARBOXYHEMOGLOBIN 4.1 % T HGB (0.0-6.9); VBG HCO3- 15.5 meq/L (22-28); VBG HEMOGLOBIN 13.3; VBG O2 SATURATION 70.8 (95-100); VBG POTASSIUM 4.5 (3.5-5.1); VBG pH 7.35 (7.32-7.42)
[2022-01-13 00:05] LABS: ALBUMIN 3.1 g/dL (3.5-5.0); ALKALINE PHOSPHATASE 299 U/L (38-126); ANION GAP 21.4 MEQ/L (5-15); BLOOD UREA NITROGEN 31 mg/dL (9-20); CHLORIDE 95 mmol/L (98-107); Calcium 8.6 mg/dL (8.4-10.2); Creatinine 1 1.06 mg/dL (0.66-1.25); EST GLOMERULAR FILTRATION RATE > 60.0 ML/MIN; LIPASE 17 U/L (23-300); MAGNESIUM 2.7 mg/dL (1.6-2.3); Potassium 4.2 mmol/L (3.5-5.1); SGOT/AST 232 U/L (17-59); SGPT/ALT 116 U/L (0-50); SODIUM 128 mmol/L (137-145)
[2022-01-13 00:20] LABS: Carbon Dioxide 16 mmol/L (22-30); Glucose 619 mg/dL (74-106)
[2022-01-13] MEDS ORDERED: PIPERACILLIN/TAZOBACTAM 3.375 GM in Sodium Chloride 100ML MINI-BAG PLUS 100 ML IV ONE (00:25)
[2022-01-13] MEDS ORDERED: HUMULIN R 100 UNIT in Sodium Chloride 0.9% 100 ML IV PRN (00:26)
[2022-01-13 00:28] LABS: INFLUENZA A NEGATIVE (NEGATIVE); INFLUENZA B NEGATIVE (NEGATIVE); RESPIRATORY SYNCTIAL VIRUS NEGATIVE (Negative)
[2022-01-13] MEDS ORDERED: Sodium Chloride 0.9% 100 ML ONE (00:33)
[2022-01-13] MEDS ORDERED: Sodium Chloride 100ML MINI-BAG PLUS 100 ML IV ONE ×2 (00:33→07:05)
[2022-01-13] MEDS ORDERED: HUMULIN R ONE (00:33)
[2022-01-13] MEDS ORDERED: PIPERACILLIN/TAZOBACTAM IV ONE ×2 (00:33→07:04)
[2022-01-13 00:42] LABS: Appearance CLEAR (CLEAR); Bilirubin NEGATIVE (NEGATIVE); Glucose 500 mg/dL (NEGATIVE); Ketones SMALL-15 (NEGATIVE); Ph 5.5 (5-6); RBC MODERATE Ery/ul (0-5)
[2022-01-13 00:43] LABS: Dipstick done @ ? MAIN LAB; Nitrite NEGATIVE (NEGATIVE); Protein,Urine Dip TRACE (Negative); Urobilinogen 0.2 mg/dL (0-1)
[2022-01-13 00:51] LABS: SARS-CoV-2 Xpert Express POSITIVE (NEGATIVE)
[2022-01-13 00:57] LABS: RBC 0-2 /HPF (0-2)
[2022-01-13 00:59] LABS: Urine Cultured Indicated? YES
[2022-01-13] MEDS ORDERED: LEVOFLOXACIN 750MG/150ML D5W 750 MG/150 ML BAG IV STA (00:59)
[2022-01-13] MEDS ORDERED: REMDESIVIR 200 MG in Sodium Chloride 0.9% 250 ML 250 ML IV ONE (00:59)
[2022-01-13 01:10] LABS: BAND 10 % (0.0-2.0); Monocyte 2 % (0.0-12.0); Platelet Estimate NORMAL (NORMAL); Total Cells Counted 100
[2022-01-13 01:11] LABS: ANISOCYTOSIS 2+; Burr Cells 1+; Poikilocytosis 1+
[2022-01-13] MEDS ORDERED: Sodium Chloride 0.9% 1000 ML 1,000 ML ONE (01:14)
[2022-01-13] MEDS: VENTOLIN COMMON CANISTER IH SCH ×5 (01:20→19:31)
[2022-01-13] MEDS ORDERED: LEVOFLOXACIN 750MG/150ML D5W 750 MG/150 ML BAG IV ONE (01:25)
[2022-01-13] MEDS ORDERED: Zofran 4 MG/2 ML VIAL IV PRN (03:40)
[2022-01-13] MEDS ORDERED: TYLENOL 325 MG PO PRN (03:40)
[2022-01-13] MEDS ORDERED: MORPHINE SULFATE 2 MG INJ IV PRN (03:40)
[2022-01-13] MEDS ORDERED: Sodium Chloride 0.9% 1000 ML 1,000 ML IV SCH (05:30)
[2022-01-13 05:43] LABS: ALBUMIN 2.8 g/dL (3.5-5.0); ALKALINE PHOSPHATASE 244 U/L (38-126); ANION GAP 12.4 MEQ/L (5-15); BLOOD UREA NITROGEN 26 mg/dL (9-20); CHLORIDE 99 mmol/L (98-107); Calcium 8.3 mg/dL (8.4-10.2); Carbon Dioxide 23 mmol/L (22-30); Creatinine 1 0.89 mg/dL (0.66-1.25); EST GLOMERULAR FILTRATION RATE > 60.0 ML/MIN; Glucose 186 mg/dL (74-106); Potassium 3.7 mmol/L (3.5-5.1); SGOT/AST 196 U/L (17-59); SGPT/ALT 102 U/L (0-50); SODIUM 131 mmol/L (137-145); Total Protein 6.5 g/dL (6.3-8.2)
[2022-01-13] MEDS ORDERED: Sodium Chloride 0.9% 250 ML 250 ML IV ONE (05:48)
[2022-01-13] MEDS ORDERED: REMDESIVIR IV ONE (05:48)
[2022-01-13 06:00] LABS: Hematocrit 31.9 % (42-50); Hemoglobin 11.2 g/dL (12.5-18.0); Mean Cell Volume 77.4 fL (78-100); Mean Corpuscular Hemoglobin 27.2 pg (26-32); Mean Corpuscular Hgb Concent. 35.1 g/dL (32-36); Mean Platelet Volume 12.1 fL (7.5-11.0); Platelet Count 193 x10^3/uL (150-450); Red Blood Count 4.12 x10^6/uL (4.1-5.6); Red Cell Distribution Width 17.6 % (11.5-14.0); White Blood Count 15.3 x10^3/uL (4.0-10.5)
[2022-01-13] MEDS ORDERED: Tessalon Perles 100 MG PO PRN (06:44)
[2022-01-13 07:17] LABS: BAND 1 % (0.0-2.0); Lymphocytes 2 % (24-44); Monocyte 1 % (0.0-12.0); Total Cells Counted 100
[2022-01-13 07:18] LABS: ANISOCYTOSIS 1+; Poikilocytosis 1+
[2022-01-13 07:23] LABS: Platelet Estimate NORMAL (NORMAL)
[2022-01-13] MEDS: PIPERACILLIN/TAZOBACTAM 3.375 GM in Sodium Chloride 100ML MINI-BAG PLUS 100 ML IV SCH ×4 (07:28→23:45)
[2022-01-13] MEDS: Sodium Chloride 0.9% 1000 ML 1,000 ML IV SCH ×3 (07:29→23:44)
[2022-01-13] MEDS: Lantus Insulin SQ SCH (08:20)
[2022-01-13] MEDS: HUMALOG SQ PRN ×3 (08:21→12:57)
--- NOTE | 2022-01-13 09:03 | XRAY ---
Indication: Nausea, vomiting, diarrhea, cough, and fever. Diabetic ketoacidosis. Multiple contiguous axial images obtained through the chest without contrast. Comparison: None Diffuse patchy right lung consolidating/nonconsolidating airspace disease greatest in the upper lobe. No effusion. Left lung clear. Heart is not enlarged. Aorta is normal in course and caliber. No pathologic mediastinal lymphadenopathy. Bony thorax intact. CT abdomen/pelvis reported separately. Impression: Diffuse patchy consolidating/nonconsolidating right lung airspace disease. Comment: Preliminary interpretation made by [facility]. No critical discrepancy.
--- NOTE | 2022-01-13 09:05 | XRAY ---
Indication: Elevated d-dimer. Positive Covid 19. Nausea, vomiting, diarrhea, cough, and fever. Diabetic ketoacidosis. Multiple contiguous axial images obtained through the chest using 80 cc Isovue 370 contrast and PE protocol. Comparison: Taken earlier in the day. There is good opacification of the pulmonary arteries to include the lobar and segmental branches. No pulmonary embolus. Heart is not enlarged. Aorta is normal in course and caliber. No pathologic mediastinal lymphadenopathy. Lungs demonstrate stable diffuse right lung consolidating/nonconsolidating airspace disease again greatest in the upper lobe. Left lung clear. No effusion. Bony thorax intact. CT abdomen/pelvis reported separately. Impression: 1. Negative pulmonary embolus. 2. Stable diffuse patchy consolidating/nonconsolidating right lung airspace disease. Comment: Preliminary interpretation made by [facility]. No critical discrepancy.
--- NOTE | 2022-01-13 09:07 | XRAY ---
Indication: Nausea, vomiting, diarrhea, cough, and fever. Diabetic ketoacidosis. Multiple contiguous axial images obtained through the abdomen and pelvis without contrast. Comparison: None CT chest reported separately. Noncontrasted stomach and bowel loops nonobstructed. Several small bowel loops are mildly fluid distended, ileus versus enteritis. Urinary bladder is markedly distended concerning for outlet obstruction versus neurogenic bladder. Normal appendix. No free fluid/air. Remaining liver, gallbladder, pancreas, spleen, adrenal glands, kidneys, ureters, and bladder are unremarkable for noncontrast exam. Mild scattered aortoiliac calcifications without AAA. Osseous structures intact. No ventral or inguinal hernias. Lower abdominal wall demonstrates bilateral subcutaneous foci of induration presumed iatrogenic. Impression: 1. Mild fluid distended small bowel loops, ileus versus enteritis. 2. Remaining CT abdomen/pelvis without contrast exam is negative. Comment: Preliminary interpretation made by [facility]. No critical discrepancy.
[2022-01-13] MEDS ORDERED: REMDESIVIR 100 MG in Sodium Chloride 0.9% 100 ML IV SCH (10:00)
[2022-01-13] MEDS ORDERED: PROTONIX 40 MG IV IV SCH (10:00)
[2022-01-13] MEDS: ENOXAPARIN SODIUM SQ SCH (10:12)
[2022-01-13] MEDS ORDERED: HYDROCODONE-CHLORPHEN ER SUSP PO PRN (12:22)
[2022-01-13] MEDS ORDERED: Ativan 1 MG PO PRN (12:22)
[2022-01-13] MEDS ORDERED: Ativan 2 MG/1 ML VIAL IV PRN (12:22)
[2022-01-13 12:43] LABS: ANION GAP 12.5 MEQ/L (5-15); BLOOD UREA NITROGEN 21 mg/dL (9-20); CHLORIDE 96 mmol/L (98-107); Calcium 7.6 mg/dL (8.4-10.2); Carbon Dioxide 21 mmol/L (22-30); Creatinine 1 0.89 mg/dL (0.66-1.25); EST GLOMERULAR FILTRATION RATE > 60.0 ML/MIN; Glucose 150 mg/dL (74-106); SODIUM 127 mmol/L (137-145)
[2022-01-13 12:46] LABS: Potassium 2.7 mmol/L (3.5-5.1)
[2022-01-13] MEDS: Flonase NASAL NS SCH (12:55)
[2022-01-13] MEDS: Decadron 4 MG INJ IV SCH (12:55)
[2022-01-13] MEDS: CLARITIN 10 MG PO SCH (12:56)
[2022-01-13] MEDS: Zestril 5 MG PO SCH (12:56)
[2022-01-13] MEDS: HUMALOG SQ SCH ×2 (12:57→17:31)
[2022-01-13] MEDS: ECOTRIN 81 MG PO SCH (12:57)
[2022-01-13] MEDS ORDERED: Klor Con PO ONE (15:51)
[2022-01-13] MEDS ORDERED: POTASSIUM CHLORIDE 20 mEq IN WATER 100ML 20 MEQ/100 ML BAG IV ONE (15:53)
[2022-01-13] MEDS: Reglan 10 MG PO PRN ×2 (16:03→22:16)
--- NOTE | 2022-01-13 18:17 | PCM.HP ---
History of Present Illness - Chief Complaint Chief Complaint: DKA, COVID-19, Sepsis History of Present Illness: is a 56 year old male who presented to ER in DKA. States he was too sick with respiratory illness to take his meds /insulin . ER evaluation dg Pneumonia,sepsis,DKA,volume depletion and tested positive for Covid. PMHx includes HTN,HLD,Hx pneumonia,IDDM and GERD. He is admitted to ICU ,Covid room. - Review of Systems Constitutional: Fever, Chills, Lethargy Eyes: No Symptoms Ears, Nose, & Throat: Nose Congestion Respiratory: Cough, Short Of Breath, Wheezing Cardiac: No Symptoms Abdominal/Gastrointestinal: No Symptoms Genitourinary Symptoms: No Symptoms Musculoskeletal: Myalgias Skin: No Symptoms Neurological: No Symptoms Psychological: No Symptoms Endocrine: Other (IDDM see HPI) Hematologic/Lymphatic: No Symptoms Medications & Allergies Home Medications: Home Medication List Aspirin EC 81 mg [Ecotrin 81 mg] 81 mg PO DAILY 07/23/19 [History Confirmed 01/13/22] Insulin Aspart [NovoLOG Insulin] 10 unit SQ QAM 07/23/19 [History Confirmed 01/13/22] Insulin Glargine [Lantus Insulin] 32 unit SQ QAM 07/23/19 [History Confirmed 01/13/22] Omeprazole Magnesium [Prilosec Otc] 20 mg PO DAILY 07/23/19 [History Confirmed 01/13/22] Cetirizine HCl [Zyrtec] 10 mg PO DAILY 01/13/22 [History Confirmed 01/13/22] Fluticasone Propionate [Flonase NASAL] 2 spray NS DAILY 01/13/22 [History Confirmed 01/13/22] Lisinopril 10 mg [Zestril 10 MG] 5 mg PO DAILY 01/13/22 [History Confirmed 01/13/22] Simvastatin 20 mg PO QHS 01/13/22 [History Confirmed 01/13/22] Allergies/Adverse Reactions: Allergies Allergy/AdvReac Type Severity Reaction Status Date / Time No Known Drug Allergies Allergy Verified 01/13/22 04:39 - Past Medical History Past Medical History: Yes Neurological History: No Pertinent History ENT History: No Pertinent History Cardiac History: High Cholesterol, Hypertension Respiratory History: Pneumonia Endocrine Medical History: Diabetes Type II Musculoskelatal History: No Pertinent History GI Medical History: GERD History: No Pertinent History Pyscho-Social History: No Pertinent History Male Reproductive Disorders: No Pertinent History - Past Surgical History Past Surgical History: No - Social History Smoking Status: Former smoker Exposure to second hand smoke: No Alcohol: Occasionally Drug Use: none - Physical Exam Vital Signs: Vital Signs - 24 hr Temp Pulse Resp BP Pulse Ox 01/13/22 18:00 93 H 20 93 L 01/13/22 17:00 97.5 F 96 H 21 144/87 88 L 01/13/22 16:00 97.5 F 96 H 21 144/87 88 L 01/13/22 15:00 106 H 24 93 L 01/13/22 14:30 104 H 24 92 L 01/13/22 14:00 112 H 21 90 L 01/13/22 13:00 108 H 21 95 01/13/22 12:00 99.6 F 103 H 28 H 109/52 91 L 01/13/22 11:00 105 H 22 95 01/13/22 10:30 109 H 20 99 01/13/22 10:00 107 H 25 H 92 L 01/13/22 08:00 100.5 F 104 H 33 H 122/57 91 L 01/13/22 06:00 98.6 F 105 H 26 H 90 L 01/13/22 05:41 104 H 26 H 89 L 01/13/22 04:45 98 F 92 H 22 115/78 93 L 01/13/22 03:00 92 H 113/67 94 L 01/13/22 02:24 95 01/13/22 02:00 88 114/67 95 01/13/22 01:20 91 H 22 92 L 01/13/22 01:03 95 01/13/22 01:00 93 H 115/64 93 L 01/13/22 00:25 101 H 18 115/69 93 L 01/12/22 23:17 100.1 F 97 H 24 132/90 97 General Appearance: mild distress, lethargy Neurologic Exam: alert, oriented x 3 Eye Exam: other (coryza) Ears, Nose, Throat Exam: moist mucous membranes Neck Exam: normal inspection Respiratory Exam: rhonchi, wheezing (scattered) Cardiovascular Exam: tachycardia Gastrointestinal/Abdomen Exam: soft (nontender) Results - Labs Lab/Micro Results: Lab Results-Last 24 Hours 01/12/22 01/12/22 01/12/22 Range/Units 23:12 23:12 23:30 WBC 23.9 H (4.0-10.5) x10^3/uL RBC 4.33 (4.1-5.6) x10^6/uL Hgb 11.8 L (12.5-18.0) g/dL Hct 34.5 L (42-50) % MCV 79.7 (78-100) fL MCH 27.3 (26-32) pg MCHC 34.2 (32-36) g/dL RDW 17.9 H (11.5-14.0) % Plt Count 214 (150-450) x10^3/uL MPV 12.7 H (7.5-11.0) fL Segmented Neutrophils 88 H (36.-66.) % Band Neutrophils 10 H (0.0-2.0) % Lymphocytes (Manual) (24-44) % Monocytes (Manual) 2 (0.0-12.0) % Platelet Estimate NORMAL (NORMAL) RBC Morphology ABNORMAL Poikilocytosis 1+ Anisocytosis 2+ [place] Cells 1+ D-Dimer (0.0-0.50) mg/L pO2/FiO2 Ratio % VBG pH (7.32-7.42) VBG pCO2 at Pat Temp (42-55) mm/Hg VBG pO2 at Pat Temp (25-40) mm/Hg VBG HCO3 (22-28) meq/L VBG O2 Sat (Jany) (95-100) VBG Base Excess (-2.0-2.0) VBG Hemoglobin VBG Carboxyhemoglobin (0.0-6.9) % T HGB POC Potassium (3.5-5.1) Sodium 128 L (137-145) mmol/L Potassium 4.2 (3.5-5.1) mmol/L Chloride 95 L (98-107) mmol/L Carbon Dioxide 16 L* (22-30) mmol/L Anion Gap 21.4 H (5-15) MEQ/L BUN 31 H (9-20) mg/dL Creatinine 1.06 (0.66-1.25) mg/dL Estimated GFR > 60.0 ML/MIN Glucose 619 H* (74-106) mg/dL POC Glucometer (50 to 500) mg/dL Lactic Acid (0.4-2.0) Calcium 8.6 (8.4-10.2) mg/dL Phosphorus (2.5-4.5) mg/dL Magnesium 2.7 H (1.6-2.3) mg/dL Total Bilirubin 1.50 H (0.2-1.3) mg/dL AST 232 H (17-59) U/L ALT 116 H (0-50) U/L Alkaline Phosphatase 299 H (38-126) U/L NT-Pro-B Natriuret Pep (0-900) pg/mL Serum Total Protein 7.0 (6.3-8.2) g/dL Albumin 3.1 L (3.5-5.0) g/dL Lipase 17 L (23-300) U/L Procalcitonin 11.400 H* (0.030-0.080) ng/mL Urinalys Dipstick Clnc Urine Color (YELLOW) Urine Appearance (CLEAR) Urine pH (5-6) Ur Specific [place] (1.005-1.025) POC Urine Protein Conf (Negative) Urine Ketones (NEGATIVE) Urine Nitrite (NEGATIVE) Urine Bilirubin (NEGATIVE) Urine Urobilinogen (0-1) mg/dL Urine Leukocytes (NEGATIVE) Urine WBC (Auto) (0-5) /HPF Urine RBC (Auto) (0-2) /HPF U Epithel Cells (Auto) (FEW) /HPF Urine Bacteria (Auto) (NEGATIVE) /HPF Urine RBC (0-5) Abram/ul Ur Culture Indicated? Urine Glucose (NEGATIVE) mg/dL Influenza Type A Ag (NEGATIVE) Influenza Type B Ag (NEGATIVE) RSV (PCR) (Negative) SARS-CoV-2 (PCR) (NEGATIVE) 01/12/22 01/12/22 01/13/22 Range/Units 23:50 23:50 00:01 WBC (4.0-10.5) x10^3/uL RBC (4.1-5.6) x10^6/uL Hgb (12.5-18.0) g/dL Hct (42-50) % MCV (78-100) fL MCH (26-32) pg MCHC (32-36) g/dL RDW (11.5-14.0) % Plt Count (150-450) x10^3/uL MPV (7.5-11.0) fL Segmented Neutrophils (36.-66.) % Band Neutrophils (0.0-2.0) % Lymphocytes (Manual) (24-44) % Monocytes (Manual) (0.0-12.0) % Platelet Estimate (NORMAL) RBC Morphology Poikilocytosis Anisocytosis Pete Cells D-Dimer (0.0-0.50) mg/L pO2/FiO2 Ratio 21.0 % VBG pH 7.35 (7.32-7.42) VBG pCO2 at Pat Temp 28 L (42-55) mm/Hg VBG pO2 at Pat Temp 42 H (25-40) mm/Hg VBG HCO3 15.5 L* (22-28) meq/L VBG O2 Sat (Jany) 70.8 L (95-100) VBG Base Excess -8.6 L (-2.0-2.0) VBG Hemoglobin 13.3 VBG Carboxyhemoglobin 4.1 (0.0-6.9) % T HGB POC Potassium 4.5 (3.5-5.1) Sodium (137-145) mmol/L Potassium (3.5-5.1) mmol/L Chloride (98-107) mmol/L Carbon Dioxide (22-30) mmol/L Anion Gap (5-15) MEQ/L BUN (9-20) mg/dL Creatinine (0.66-1.25) mg/dL Estimated GFR ML/MIN Glucose (74-106) mg/dL POC Glucometer (50 to 500) mg/dL Lactic Acid 4.4 H (0.4-2.0) Calcium (8.4-10.2) mg/dL Phosphorus (2.5-4.5) mg/dL Magnesium (1.6-2.3) mg/dL Total Bilirubin (0.2-1.3) mg/dL AST (17-59) U/L ALT (0-50) U/L Alkaline Phosphatase (38-126) U/L NT-Pro-B Natriuret Pep (0-900) pg/mL Serum Total Protein (6.3-8.2) g/dL Albumin (3.5-5.0) g/dL Lipase (23-300) U/L Procalcitonin (0.030-0.080) ng/mL Urinalys Dipstick Clnc MAIN LAB Urine Color YELLOW (YELLOW) Urine Appearance CLEAR (CLEAR) Urine pH 5.5 (5-6) Ur Specific [place] 1.010 (1.005-1.025) POC Urine Protein Conf TRACE (Negative) Urine Ketones SMALL-15 (NEGATIVE) Urine Nitrite NEGATIVE (NEGATIVE) Urine Bilirubin NEGATIVE (NEGATIVE) Urine Urobilinogen 0.2 (0-1) mg/dL Urine Leukocytes NEGATIVE (NEGATIVE) Urine WBC (Auto) NONE (0-5) /HPF Urine RBC (Auto) 0-2 (0-2) /HPF U Epithel Cells (Auto) NONE (FEW) /HPF Urine Bacteria (Auto) NONE (NEGATIVE) /HPF Urine RBC MODERATE (0-5) Abram/ul Ur Culture Indicated? YES Urine Glucose 500 (NEGATIVE) mg/dL Influenza Type A Ag NEGATIVE (NEGATIVE) Influenza Type B Ag NEGATIVE (NEGATIVE) RSV (PCR) NEGATIVE (Negative) SARS-CoV-2 (PCR) POSITIVE A (NEGATIVE) 01/13/22 01/13/22 01/13/22 Range/Units 01:16 01:24 02:05 WBC (4.0-10.5) x10^3/uL RBC (4.1-5.6) x10^6/uL Hgb (12.5-18.0) g/dL Hct (42-50) % MCV (78-100) fL MCH (26-32) pg MCHC (32-36) g/dL RDW (11.5-14.0) % Plt Count (150-450) x10^3/uL MPV (7.5-11.0) fL Segmented Neutrophils (36.-66.) % Band Neutrophils (0.0-2.0) % Lymphocytes (Manual) (24-44) % Monocytes (Manual) (0.0-12.0) % Platelet Estimate (NORMAL) RBC Morphology Poikilocytosis Anisocytosis [place] Cells D-Dimer 3.98 H* (0.0-0.50) mg/L pO2/FiO2 Ratio % VBG pH (7.32-7.42) VBG pCO2 at Pat Temp (42-55) mm/Hg VBG pO2 at Pat Temp (25-40) mm/Hg VBG HCO3 (22-28) meq/L VBG O2 Sat (Jany) (95-100) VBG Base Excess (-2.0-2.0) VBG Hemoglobin VBG Carboxyhemoglobin (0.0-6.9) % T HGB POC Potassium (3.5-5.1) Sodium (137-145) mmol/L Potassium (3.5-5.1) mmol/L Chloride (98-107) mmol/L Carbon Dioxide (22-30) mmol/L Anion Gap (5-15) MEQ/L BUN (9-20) mg/dL Creatinine (0.66-1.25) mg/dL Estimated GFR ML/MIN Glucose (74-106) mg/dL POC Glucometer 515 H* (50 to 500) mg/dL Lactic Acid 2.7 H (0.4-2.0) Calcium (8.4-10.2) mg/dL Phosphorus (2.5-4.5) mg/dL Magnesium (1.6-2.3) mg/dL Total Bilirubin (0.2-1.3) mg/dL AST (17-59) U/L ALT (0-50) U/L Alkaline Phosphatase (38-126) U/L NT-Pro-B Natriuret Pep (0-900) pg/mL Serum Total Protein (6.3-8.2) g/dL Albumin (3.5-5.0) g/dL Lipase (23-300) U/L Procalcitonin (0.030-0.080) ng/mL Urinalys Dipstick Clnc Urine Color (YELLOW) Urine Appearance (CLEAR) Urine pH (5-6) Ur Specific [place] (1.005-1.025) POC Urine Protein Conf (Negative) Urine Ketones (NEGATIVE) Urine Nitrite (NEGATIVE) Urine Bilirubin (NEGATIVE) Urine Urobilinogen (0-1) mg/dL Urine Leukocytes (NEGATIVE) Urine WBC (Auto) (0-5) /HPF Urine RBC (Auto) (0-2) /HPF U Epithel Cells (Auto) (FEW) /HPF Urine Bacteria (Auto) (NEGATIVE) /HPF Urine RBC (0-5) Abram/ul Ur Culture Indicated? Urine Glucose (NEGATIVE) mg/dL Influenza Type A Ag (NEGATIVE) Influenza Type B Ag (NEGATIVE) RSV (PCR) (Negative) SARS-CoV-2 (PCR) (NEGATIVE) 01/13/22 01/13/22 01/13/22 Range/Units 02:23 02:28 03:27 WBC (4.0-10.5) x10^3/uL RBC (4.1-5.6) x10^6/uL Hgb (12.5-18.0) g/dL Hct (42-50) % MCV (78-100) fL MCH (26-32) pg MCHC (32-36) g/dL RDW (11.5-14.0) % Plt Count (150-450) x10^3/uL MPV (7.5-11.0) fL Segmented Neutrophils (36.-66.) % Band Neutrophils (0.0-2.0) % Lymphocytes (Manual) (24-44) % Monocytes (Manual) (0.0-12.0) % Platelet Estimate (NORMAL) RBC Morphology Poikilocytosis Anisocytosis [place] Cells D-Dimer (0.0-0.50) mg/L pO2/FiO2 Ratio % VBG pH (7.32-7.42) VBG pCO2 at Pat Temp (42-55) mm/Hg VBG pO2 at Pat Temp (25-40) mm/Hg VBG HCO3 (22-28) meq/L VBG O2 Sat (Jany) (95-100) VBG Base Excess (-2.0-2.0) VBG Hemoglobin VBG Carboxyhemoglobin (0.0-6.9) % T HGB POC Potassium (3.5-5.1) Sodium (137-145) mmol/L Potassium (3.5-5.1) mmol/L Chloride (98-107) mmol/L Carbon Dioxide (22-30) mmol/L Anion Gap (5-15) MEQ/L BUN (9-20) mg/dL Creatinine (0.66-1.25) mg/dL Estimated GFR ML/MIN Glucose (74-106) mg/dL POC Glucometer 411 H 320 H (50 to 500) mg/dL Lactic Acid (0.4-2.0) Calcium (8.4-10.2) mg/dL Phosphorus 1.8 L (2.5-4.5) mg/dL Magnesium (1.6-2.3) mg/dL Total Bilirubin (0.2-1.3) mg/dL AST (17-59) U/L ALT (0-50) U/L Alkaline Phosphatase (38-126) U/L NT-Pro-B Natriuret Pep (0-900) pg/mL Serum Total Protein (6.3-8.2) g/dL Albumin (3.5-5.0) g/dL Lipase (23-300) U/L Procalcitonin (0.030-0.080) ng/mL Urinalys Dipstick Clnc Urine Color (YELLOW) Urine Appearance (CLEAR) Urine pH (5-6) Ur Specific [place] (1.005-1.025) POC Urine Protein Conf (Negative) Urine Ketones (NEGATIVE) Urine Nitrite (NEGATIVE) Urine Bilirubin (NEGATIVE) Urine Urobilinogen (0-1) mg/dL Urine Leukocytes (NEGATIVE) Urine WBC (Auto) (0-5) /HPF Urine RBC (Auto) (0-2) /HPF U Epithel Cells (Auto) (FEW) /HPF Urine Bacteria (Auto) (NEGATIVE) /HPF Urine RBC (0-5) Abram/ul Ur Culture Indicated? Urine Glucose (NEGATIVE) mg/dL Influenza Type A Ag (NEGATIVE) Influenza Type B Ag (NEGATIVE) RSV (PCR) (Negative) SARS-CoV-2 (PCR) (NEGATIVE) 01/13/22 01/13/22 01/13/22 Range/Units 04:34 04:55 04:55 WBC 15.3 H (4.0-10.5) x10^3/uL RBC 4.12 (4.1-5.6) x10^6/uL Hgb 11.2 L (12.5-18.0) g/dL Hct 31.9 L (42-50) % MCV 77.4 L (78-100) fL MCH 27.2 (26-32) pg MCHC 35.1 (32-36) g/dL RDW 17.6 H (11.5-14.0) % Plt Count 193 (150-450) x10^3/uL MPV 12.1 H (7.5-11.0) fL Segmented Neutrophils 96 H (36.-66.) % Band Neutrophils 1 (0.0-2.0) % Lymphocytes (Manual) 2 L (24-44) % Monocytes (Manual) 1 (0.0-12.0) % Platelet Estimate NORMAL (NORMAL) RBC Morphology ABNORMAL Poikilocytosis 1+ Anisocytosis 1+ Pete Cells D-Dimer (0.0-0.50) mg/L pO2/FiO2 Ratio % VBG pH (7.32-7.42) VBG pCO2 at Pat Temp (42-55) mm/Hg VBG pO2 at Pat Temp (25-40) mm/Hg VBG HCO3 (22-28) meq/L VBG O2 Sat (Jany) (95-100) VBG Base Excess (-2.0-2.0) VBG Hemoglobin VBG Carboxyhemoglobin (0.0-6.9) % T HGB POC Potassium (3.5-5.1) Sodium 131 L (137-145) mmol/L Potassium 3.7 (3.5-5.1) mmol/L Chloride 99 (98-107) mmol/L Carbon Dioxide 23 (22-30) mmol/L Anion Gap 12.4 (5-15) MEQ/L BUN 26 H (9-20) mg/dL Creatinine 0.89 (0.66-1.25) mg/dL Estimated GFR > 60.0 ML/MIN Glucose 186 H (74-106) mg/dL POC Glucometer 231 H (50 to 500) mg/dL Lactic Acid (0.4-2.0) Calcium 8.3 L (8.4-10.2) mg/dL Phosphorus (2.5-4.5) mg/dL Magnesium (1.6-2.3) mg/dL Total Bilirubin 1.10 (0.2-1.3) mg/dL AST 196 H (17-59) U/L ALT 102 H (0-50) U/L Alkaline Phosphatase 244 H (38-126) U/L NT-Pro-B Natriuret Pep (0-900) pg/mL Serum Total Protein 6.5 (6.3-8.2) g/dL Albumin 2.8 L (3.5-5.0) g/dL Lipase (23-300) U/L Procalcitonin (0.030-0.080) ng/mL Urinalys Dipstick Clnc Urine Color (YELLOW) Urine Appearance (CLEAR) Urine pH (5-6) Ur Specific [place] (1.005-1.025) POC Urine Protein Conf (Negative) Urine Ketones (NEGATIVE) Urine Nitrite (NEGATIVE) Urine Bilirubin (NEGATIVE) Urine Urobilinogen (0-1) mg/dL Urine Leukocytes (NEGATIVE) Urine WBC (Auto) (0-5) /HPF Urine RBC (Auto) (0-2) /HPF U Epithel Cells (Auto) (FEW) /HPF Urine Bacteria (Auto) (NEGATIVE) /HPF Urine RBC (0-5) Abram/ul Ur Culture Indicated? Urine Glucose (NEGATIVE) mg/dL Influenza Type A Ag (NEGATIVE) Influenza Type B Ag (NEGATIVE) RSV (PCR) (Negative) SARS-CoV-2 (PCR) (NEGATIVE) 01/13/22 01/13/22 01/13/22 Range/Units 05:00 05:30 06:07 WBC (4.0-10.5) x10^3/uL RBC (4.1-5.6) x10^6/uL Hgb (12.5-18.0) g/dL Hct (42-50) % MCV (78-100) fL MCH (26-32) pg MCHC (32-36) g/dL RDW (11.5-14.0) % Plt Count (150-450) x10^3/uL MPV (7.5-11.0) fL Segmented Neutrophils (36.-66.) % Band Neutrophils (0.0-2.0) % Lymphocytes (Manual) (24-44) % Monocytes (Manual) (0.0-12.0) % Platelet Estimate (NORMAL) RBC Morphology Poikilocytosis Anisocytosis [place] Cells D-Dimer (0.0-0.50) mg/L pO2/FiO2 Ratio % VBG pH (7.32-7.42) VBG pCO2 at Pat Temp (42-55) mm/Hg VBG pO2 at Pat Temp (25-40) mm/Hg VBG HCO3 (22-28) meq/L VBG O2 Sat (Jany) (95-100) VBG Base Excess (-2.0-2.0) VBG Hemoglobin VBG Carboxyhemoglobin (0.0-6.9) % T HGB POC Potassium (3.5-5.1) Sodium (137-145) mmol/L Potassium (3.5-5.1) mmol/L Chloride (98-107) mmol/L Carbon Dioxide (22-30) mmol/L Anion Gap (5-15) MEQ/L BUN (9-20) mg/dL Creatinine (0.66-1.25) mg/dL Estimated GFR ML/MIN Glucose (74-106) mg/dL POC Glucometer 216 H 180 H (50 to 500) mg/dL Lactic Acid (0.4-2.0) Calcium (8.4-10.2) mg/dL Phosphorus (2.5-4.5) mg/dL Magnesium (1.6-2.3) mg/dL Total Bilirubin (0.2-1.3) mg/dL AST (17-59) U/L ALT (0-50) U/L Alkaline Phosphatase (38-126) U/L NT-Pro-B Natriuret Pep 516 (0-900) pg/mL Serum Total Protein (6.3-8.2) g/dL Albumin (3.5-5.0) g/dL Lipase (23-300) U/L Procalcitonin (0.030-0.080) ng/mL Urinalys Dipstick Clnc Urine Color (YELLOW) Urine Appearance (CLEAR) Urine pH (5-6) Ur Specific [place] (1.005-1.025) POC Urine Protein Conf (Negative) Urine Ketones (NEGATIVE) Urine Nitrite (NEGATIVE) Urine Bilirubin (NEGATIVE) Urine Urobilinogen (0-1) mg/dL Urine Leukocytes (NEGATIVE) Urine WBC (Auto) (0-5) /HPF Urine RBC (Auto) (0-2) /HPF U Epithel Cells (Auto) (FEW) /HPF Urine Bacteria (Auto) (NEGATIVE) /HPF Urine RBC (0-5) Abram/ul Ur Culture Indicated? Urine Glucose (NEGATIVE) mg/dL Influenza Type A Ag (NEGATIVE) Influenza Type B Ag (NEGATIVE) RSV (PCR) (Negative) SARS-CoV-2 (PCR) (NEGATIVE) 01/13/22 01/13/22 01/13/22 Range/Units 08:13 10:06 12:20 WBC (4.0-10.5) x10^3/uL RBC (4.1-5.6) x10^6/uL Hgb (12.5-18.0) g/dL Hct (42-50) % MCV (78-100) fL MCH (26-32) pg MCHC (32-36) g/dL RDW (11.5-14.0) % Plt Count (150-450) x10^3/uL MPV (7.5-11.0) fL Segmented Neutrophils (36.-66.) % Band Neutrophils (0.0-2.0) % Lymphocytes (Manual) (24-44) % Monocytes (Manual) (0.0-12.0) % Platelet Estimate (NORMAL) RBC Morphology Poikilocytosis Anisocytosis [place] Cells D-Dimer (0.0-0.50) mg/L pO2/FiO2 Ratio % VBG pH (7.32-7.42) VBG pCO2 at Pat Temp (42-55) mm/Hg VBG pO2 at Pat Temp (25-40) mm/Hg VBG HCO3 (22-28) meq/L VBG O2 Sat (Jany) (95-100) VBG Base Excess (-2.0-2.0) VBG Hemoglobin VBG Carboxyhemoglobin (0.0-6.9) % T HGB POC Potassium (3.5-5.1) Sodium 127 L (137-145) mmol/L Potassium 2.7 L* D (3.5-5.1) mmol/L Chloride 96 L (98-107) mmol/L Carbon Dioxide 21 L (22-30) mmol/L Anion Gap 12.5 (5-15) MEQ/L BUN 21 H (9-20) mg/dL Creatinine 0.89 (0.66-1.25) mg/dL Estimated GFR > 60.0 ML/MIN Glucose 150 H (74-106) mg/dL POC Glucometer 218 H 194 H (50 to 500) mg/dL Lactic Acid (0.4-2.0) Calcium 7.6 L (8.4-10.2) mg/dL Phosphorus (2.5-4.5) mg/dL Magnesium (1.6-2.3) mg/dL Total Bilirubin (0.2-1.3) mg/dL AST (17-59) U/L ALT (0-50) U/L Alkaline Phosphatase (38-126) U/L NT-Pro-B Natriuret Pep (0-900) pg/mL Serum Total Protein (6.3-8.2) g/dL Albumin (3.5-5.0) g/dL Lipase (23-300) U/L Procalcitonin (0.030-0.080) ng/mL Urinalys Dipstick Clnc Urine Color (YELLOW) Urine Appearance (CLEAR) Urine pH (5-6) Ur Specific [place] (1.005-1.025) POC Urine Protein Conf (Negative) Urine Ketones (NEGATIVE) Urine Nitrite (NEGATIVE) Urine Bilirubin (NEGATIVE) Urine Urobilinogen (0-1) mg/dL Urine Leukocytes (NEGATIVE) Urine WBC (Auto) (0-5) /HPF Urine RBC (Auto) (0-2) /HPF U Epithel Cells (Auto) (FEW) /HPF Urine Bacteria (Auto) (NEGATIVE) /HPF Urine RBC (0-5) Abram/ul Ur Culture Indicated? Urine Glucose (NEGATIVE) mg/dL Influenza Type A Ag (NEGATIVE) Influenza Type B Ag (NEGATIVE) RSV (PCR) (Negative) SARS-CoV-2 (PCR) (NEGATIVE) 01/13/22 01/13/22 Range/Units 12:24 16:21 WBC (4.0-10.5) x10^3/uL RBC (4.1-5.6) x10^6/uL Hgb (12.5-18.0) g/dL Hct (42-50) % MCV (78-100) fL MCH (26-32) pg MCHC (32-36) g/dL RDW (11.5-14.0) % Plt Count (150-450) x10^3/uL MPV (7.5-11.0) fL Segmented Neutrophils (36.-66.) % Band Neutrophils (0.0-2.0) % Lymphocytes (Manual) (24-44) % Monocytes (Manual) (0.0-12.0) % Platelet Estimate (NORMAL) RBC Morphology Poikilocytosis Anisocytosis Pete Cells D-Dimer (0.0-0.50) mg/L pO2/FiO2 Ratio % VBG pH (7.32-7.42) VBG pCO2 at Pat Temp (42-55) mm/Hg VBG pO2 at Pat Temp (25-40) mm/Hg VBG HCO3 (22-28) meq/L VBG O2 Sat (Jany) (95-100) VBG Base Excess (-2.0-2.0) VBG Hemoglobin VBG Carboxyhemoglobin (0.0-6.9) % T HGB POC Potassium (3.5-5.1) Sodium (137-145) mmol/L Potassium (3.5-5.1) mmol/L Chloride (98-107) mmol/L Carbon Dioxide (22-30) mmol/L Anion Gap (5-15) MEQ/L BUN (9-20) mg/dL Creatinine (0.66-1.25) mg/dL Estimated GFR ML/MIN Glucose (74-106) mg/dL POC Glucometer 168 H 89 (50 to 500) mg/dL Lactic Acid (0.4-2.0) Calcium (8.4-10.2) mg/dL Phosphorus (2.5-4.5) mg/dL Magnesium (1.6-2.3) mg/dL Total Bilirubin (0.2-1.3) mg/dL AST (17-59) U/L ALT (0-50) U/L Alkaline Phosphatase (38-126) U/L NT-Pro-B Natriuret Pep (0-900) pg/mL Serum Total Protein (6.3-8.2) g/dL Albumin (3.5-5.0) g/dL Lipase (23-300) U/L Procalcitonin (0.030-0.080) ng/mL Urinalys Dipstick Clnc Urine Color (YELLOW) Urine Appearance (CLEAR) Urine pH (5-6) Ur Specific Lingle (1.005-1.025) POC Urine Protein Conf (Negative) Urine Ketones (NEGATIVE) Urine Nitrite (NEGATIVE) Urine Bilirubin (NEGATIVE) Urine Urobilinogen (0-1) mg/dL Urine Leukocytes (NEGATIVE) Urine WBC (Auto) (0-5) /HPF Urine RBC (Auto) (0-2) /HPF U Epithel Cells (Auto) (FEW) /HPF Urine Bacteria (Auto) (NEGATIVE) /HPF Urine RBC (0-5) Abram/ul Ur Culture Indicated? Urine Glucose (NEGATIVE) mg/dL Influenza Type A Ag (NEGATIVE) Influenza Type B Ag (NEGATIVE) RSV (PCR) (Negative) SARS-CoV-2 (PCR) (NEGATIVE) Accuchecks Date 01/13/22 Date 01/13/22 Date 01/12/22 Time 12:00 Time 08:00 Time 23:05 - Radiology Impressions Radiology Exams & Impressions: Radiology Procedures Category Date Time Status ABDOMEN AND PELVIS W/0 CONTRAS [CT] Stat Exams 01/12/22 00:00 Completed CHEST WITH CONTRAST [CT] Stat Exams 01/13/22 02:24 Completed CHEST WITHOUT CONTRAST [CT] Stat Exams 01/12/22 23:57 Completed - Other Procedures and Tests Respiratory Therapy 01/13/22 01:20 Respiratory Therapy Assessment DAILY 01/13/22 01:37 Oxygen Nasal Cannula 2 lpm Assessment/Plan (1) DKA (diabetic ketoacidosis) Current Visit: Yes Status: Resolved Qualifiers: Diabetes mellitus type: type 2 Diabetes mellitus complication detail: without coma Qualified Code(s): E11.10 - Type 2 diabetes mellitus with ketoacidosis without coma Assessment & Plan: sugar 600 in ER now <200 and anion gap wnl on AM labs. Can change status from ICU to Medsurg Code(s): E11.10 - TYPE 2 DIABETES MELLITUS WITH KETOACIDOSIS WITHOUT COMA (2) Pneumonia Current Visit: Yes Status: Acute Qualifiers: Laterality: right Assessment & Plan: Levaquin started in ER Code(s): J18.9 - PNEUMONIA, UNSPECIFIED ORGANISM (3) COVID-19 virus detected Current Visit: Yes Status: Acute Code(s): U07.1 - COVID-19 (4) Sepsis Current Visit: Yes Status: Acute Assessment & Plan: clinically improved with overnight hydration and IV Levaquin,monitor (5) Hypokalemia Current Visit: Yes Status: Resolved Assessment & Plan: K-rider 20meq x 1 now and K[place]te 25meq oral 1 dose now and q day x 3 days- repeat potassium -wnl Code(s): E87.6 - HYPOKALEMIA (6) Elevated d-dimer Current Visit: Yes Status: Acute Assessment & Plan: Lovenox 40 mg daily , CT chest neg for PE Code(s): R79.89 - OTHER SPECIFIED ABNORMAL FINDINGS OF BLOOD CHEMISTRY
[2022-01-13] MEDS ORDERED: NON-FORMULARY ITEM (Simvastatin [Simvastatin] 40 MG Tablet) PO SCH (22:00)
[2022-01-13] MEDS ORDERED: Levofloxacin 500MG/100ML D5W 500 MG/100 ML BAG IV SCH (22:00)
[2022-01-13] MEDS: ZOCOR 20MG PO SCH (22:16)
[2022-01-14] MEDS: Sodium Chloride 0.9% W/ 20 mEq KCl/LITER 1,000 ML IV SCH ×3 (00:20→17:14)
[2022-01-14] MEDS ORDERED: REMDESIVIR 100 MG in Sodium Chloride 0.9% 100 ML IV SCH (01:02)
[2022-01-14] MEDS: Reglan 10 MG PO PRN ×2 (04:35→20:06)
[2022-01-14] MEDS: PIPERACILLIN/TAZOBACTAM 3.375 GM in Sodium Chloride 100ML MINI-BAG PLUS 100 ML IV SCH ×3 (05:53→17:12)
[2022-01-14 06:05] LABS: Hemoglobin 9.9 g/dL (12.5-18.0); Mean Cell Volume 75.3 fL (78-100); Mean Corpuscular Hemoglobin 26.6 pg (26-32); Mean Corpuscular Hgb Concent. 35.4 g/dL (32-36); Mean Platelet Volume 11.4 fL (7.5-11.0); Platelet Count 213 x10^3/uL (150-450); Red Blood Count 3.72 x10^6/uL (4.1-5.6); Red Cell Distribution Width 17.7 % (11.5-14.0)
[2022-01-14 06:37] LABS: ALBUMIN 2.2 g/dL (3.5-5.0); ALKALINE PHOSPHATASE 184 U/L (38-126); ANION GAP 12.7 MEQ/L (5-15); BLOOD UREA NITROGEN 20 mg/dL (9-20); CHLORIDE 100 mmol/L (98-107); Calcium 7.4 mg/dL (8.4-10.2); Carbon Dioxide 19 mmol/L (22-30); Creatinine 1 0.77 mg/dL (0.66-1.25); EST GLOMERULAR FILTRATION RATE > 60.0 ML/MIN; Glucose 243 mg/dL (74-106); Potassium 4.1 mmol/L (3.5-5.1); SGOT/AST 565 U/L (17-59); SGPT/ALT 171 U/L (0-50); SODIUM 127 mmol/L (137-145); Total Protein 5.5 g/dL (6.3-8.2)
[2022-01-14] MEDS: VENTOLIN COMMON CANISTER IH SCH ×2 (08:20→14:33)
[2022-01-14] MEDS: HUMALOG SQ SCH ×3 (08:23→17:11)
[2022-01-14] MEDS: HUMALOG SQ PRN ×3 (08:23→17:11)
[2022-01-14] MEDS ORDERED: NON-FORMULARY ITEM (Cetirizine Hcl [Zyrtec] 10 MG Capsule) PO SCH (10:00)
[2022-01-14] MEDS ORDERED: NON-FORMULARY ITEM (Omeprazole Magnesium [Prilosec Otc] 20 MG Tablet.Dr) PO SCH (10:00)
[2022-01-14] MEDS ORDERED: NON-FORMULARY ITEM (Insulin Aspart** [Novolog Insulin**] 1 UNIT Unit) SQ SCH (10:00)
[2022-01-14] MEDS: ENOXAPARIN SODIUM SQ SCH (10:26)
[2022-01-14] MEDS: ECOTRIN 81 MG PO SCH (10:26)
[2022-01-14] MEDS: REMDESIVIR 100 MG in Sodium Chloride 0.9% 100 ML IV SCH (10:26)
[2022-01-14] MEDS: Zestril 5 MG PO SCH (10:26)
[2022-01-14] MEDS: Decadron 4 MG INJ IV SCH (10:27)
[2022-01-14] MEDS: CLARITIN 10 MG PO SCH (10:27)
[2022-01-14] MEDS: Klor Con PO SCH (10:27)
[2022-01-14] MEDS: Lantus Insulin SQ SCH (10:28)
[2022-01-14] MEDS: Flonase NASAL NS SCH (10:28)
[2022-01-14] MEDS: Protonix 40MG Tablet PO SCH (10:30)
[2022-01-14 11:05] LABS: ANISOCYTOSIS 1+; Lymphocytes 2 % (24-44); Monocyte 2 % (0.0-12.0); Platelet Estimate NORMAL (NORMAL); Total Cells Counted 100
[2022-01-14] MEDS ORDERED: MARY'S MOUTHWASH PO SCH (12:30)
[2022-01-14] MEDS: MARY'S MOUTHWASH PO SCH ×2 (14:30→17:12)
[2022-01-14] MEDS ORDERED: VENTOLIN COMMON CANISTER IH PRN (14:34)
[2022-01-14] MEDS: ZOCOR 20MG PO SCH (22:42)
[2022-01-15] MEDS: PIPERACILLIN/TAZOBACTAM 3.375 GM in Sodium Chloride 100ML MINI-BAG PLUS 100 ML IV SCH ×5 (00:17→22:57)
[2022-01-15] MEDS: MARY'S MOUTHWASH PO SCH ×5 (00:18→23:08)
[2022-01-15] MEDS: Sodium Chloride 0.9% W/ 20 mEq KCl/LITER 1,000 ML IV SCH ×3 (02:15→15:54)
[2022-01-15 06:09] LABS: Hematocrit 31.3 % (42-50); Mean Corpuscular Hemoglobin 26.7 pg (26-32); Mean Corpuscular Hgb Concent. 35.1 g/dL (32-36); Mean Platelet Volume 11.7 fL (7.5-11.0); Platelet Count 253 x10^3/uL (150-450); Red Blood Count 4.12 x10^6/uL (4.1-5.6); Red Cell Distribution Width 18.5 % (11.5-14.0); White Blood Count 15.8 x10^3/uL (4.0-10.5)
[2022-01-15 06:32] LABS: ALKALINE PHOSPHATASE 245 U/L (38-126); ANION GAP 9.1 MEQ/L (5-15); BLOOD UREA NITROGEN 24 mg/dL (9-20); CHLORIDE 105 mmol/L (98-107); Calcium 7.5 mg/dL (8.4-10.2); Carbon Dioxide 19 mmol/L (22-30); Creatinine 1 0.68 mg/dL (0.66-1.25); EST GLOMERULAR FILTRATION RATE > 60.0 ML/MIN; Glucose 232 mg/dL (74-106); Potassium 4.4 mmol/L (3.5-5.1); SGOT/AST 340 U/L (17-59); SGPT/ALT 159 U/L (0-50); SODIUM 129 mmol/L (137-145); Total Protein 5.4 g/dL (6.3-8.2)
[2022-01-15] MEDS: REMDESIVIR 100 MG in Sodium Chloride 0.9% 100 ML IV SCH (09:18)
[2022-01-15] MEDS: HUMALOG SQ PRN ×3 (09:18→17:19)
[2022-01-15] MEDS: HUMALOG SQ SCH ×3 (09:18→17:19)
[2022-01-15] MEDS: Flonase NASAL NS SCH (09:18)
[2022-01-15] MEDS: Zestril 5 MG PO SCH (09:19)
[2022-01-15] MEDS: Klor Con PO SCH (09:19)
[2022-01-15] MEDS: ENOXAPARIN SODIUM SQ SCH (09:21)
[2022-01-15] MEDS: Protonix 40MG Tablet PO SCH (09:21)
[2022-01-15] MEDS: CLARITIN 10 MG PO SCH (09:21)
[2022-01-15] MEDS: ECOTRIN 81 MG PO SCH (09:21)
[2022-01-15] MEDS: Decadron 4 MG INJ IV SCH (09:21)
[2022-01-15] MEDS: Lantus Insulin SQ SCH (09:22)
[2022-01-15] MEDS: Mucinex 600MG ER Tabs PO SCH ×2 (10:55→22:53)
[2022-01-15 12:44] LABS: ANISOCYTOSIS 1+; Lymphocytes 2 % (24-44); Monocyte 2 % (0.0-12.0); Platelet Estimate NORMAL (NORMAL); Total Cells Counted 100
[2022-01-15] MEDS: ZOCOR 20MG PO SCH (22:53)
[2022-01-16 04:59] LABS: Hematocrit 29.9 % (42-50); Hemoglobin 10.5 g/dL (12.5-18.0); Mean Cell Volume 76.9 fL (78-100); Mean Corpuscular Hgb Concent. 35.1 g/dL (32-36); Mean Platelet Volume 11.6 fL (7.5-11.0); Platelet Count 293 x10^3/uL (150-450); Red Blood Count 3.89 x10^6/uL (4.1-5.6); Red Cell Distribution Width 19.5 % (11.5-14.0); White Blood Count 12.4 x10^3/uL (4.0-10.5)
[2022-01-16] MEDS: PIPERACILLIN/TAZOBACTAM 3.375 GM in Sodium Chloride 100ML MINI-BAG PLUS 100 ML IV SCH ×3 (05:12→17:43)
[2022-01-16 05:42] LABS: ALKALINE PHOSPHATASE 358 U/L (38-126); ANION GAP 7.7 MEQ/L (5-15); BLOOD UREA NITROGEN 25 mg/dL (9-20); CHLORIDE 108 mmol/L (98-107); Calcium 7.6 mg/dL (8.4-10.2); Carbon Dioxide 21 mmol/L (22-30); Creatinine 1 0.71 mg/dL (0.66-1.25); EST GLOMERULAR FILTRATION RATE > 60.0 ML/MIN; Glucose 112 mg/dL (74-106); Potassium 4.6 mmol/L (3.5-5.1); SGOT/AST 336 U/L (17-59); SGPT/ALT 189 U/L (0-50); SODIUM 132 mmol/L (137-145); Total Protein 5.4 g/dL (6.3-8.2)
[2022-01-16] MEDS: Sodium Chloride 0.9% W/ 20 mEq KCl/LITER 1,000 ML IV SCH (06:03)
[2022-01-16 06:26] LABS: Lymphocytes 7 % (24-44); Total Cells Counted 100
[2022-01-16 06:27] LABS: ANISOCYTOSIS 1+; Platelet Estimate NORMAL (NORMAL)
[2022-01-16] MEDS: HUMALOG SQ SCH ×3 (09:40→17:26)
[2022-01-16] MEDS: CLARITIN 10 MG PO SCH (09:41)
[2022-01-16] MEDS: ECOTRIN 81 MG PO SCH (09:41)
[2022-01-16] MEDS: MARY'S MAGIC MOUTHWASH PO SCH ×4 (09:41→22:53)
[2022-01-16] MEDS: Klor Con PO SCH (09:41)
[2022-01-16] MEDS: Zestril 5 MG PO SCH (09:41)
[2022-01-16] MEDS: Lantus Insulin SQ SCH (09:41)
[2022-01-16] MEDS: Mucinex 600MG ER Tabs PO SCH ×2 (09:41→22:53)
[2022-01-16] MEDS: Protonix 40MG Tablet PO SCH (09:42)
[2022-01-16] MEDS: ENOXAPARIN SODIUM SQ SCH (09:42)
[2022-01-16] MEDS: Flonase NASAL NS SCH (09:42)
[2022-01-16] MEDS: Decadron 4 MG INJ IV SCH (09:42)
[2022-01-16] MEDS: REMDESIVIR 100 MG in Sodium Chloride 0.9% 100 ML IV SCH (09:44)
[2022-01-16] MEDS: MARY'S MOUTHWASH PO SCH (10:06)
--- NOTE | 2022-01-16 10:56 | CONS ---
CONSULT DATE: 01/15/2022 REASON FOR CONSULT: Shortness of breath, COVID positive, HISTORY: Law Galan is a 56-year-old male with history of poorly controlled diabetes mellitus who has been sick for about a week. He apparently went to work and was asked to go home as he was not feeling well. He presented to [facility] where additional work up showed uncontrolled hyperglycemia along with positive COVID status. The patient has since been admitted. He did require supplemental oxygen upon admission which has now been weaned off. He has been treated per protocol with Remdesivir therapy. At the time of my evaluation today, he appeared much improved. He had some minimally productive cough but voices no other complaints. The patient denies prior history of any pulmonary problems. PAST MEDICAL HISTORY: Positive for hypertension, diabetes mellitus poorly controlled with A1C more than 14, dyslipidemia and gastroesophageal reflux disease. PAST SURGICAL HISTORY: No recent surgery. PERSONAL AND SOCIAL HISTORY: He works at [employer] in [place]. MEDICATIONS: Home and current medications are reviewed. ALLERGIES: NKDA. PHYSICAL EXAMINATION: This is a middle aged male who appears tired and weak. Vital signs noted. HEENT: Normocephalic. Oral exam shows poor oral hygiene. NECK: Supple. CVS: First and second heart sounds are normal, regular, rhythmic. RESPIRATORY: Shows diminished breath sounds. ABDOMEN: Soft. EXTREMITIES: No significant edema is noted. LABORATORY DATA AND TESTS: Labs and x-rays reviewed. ASSESSMENT: This is a 56-year-old male admitted with: 1) Acute hypoxic respiratory failure which has now resolved. 2) COVID-19 with viral pneumonia improved. 3) Diabetes mellitus suboptimally controlled. 4) Comorbidities listed above. RECOMMENDATIONS: 1) The patient is doing well from pulmonary standpoint. 2) Continue and complete Remdesivir therapy for five days. 3) Medrol steroid taper. 4) Deep vein thrombosis prophylaxis. 5) Need for improved glycemic control was discussed, management per primary care. 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 I will be glad to follow patient upon discharge from hospital in outpatient setting. Thank you for allowing me to participate in the care of this patient.
[2022-01-16] MEDS: ZOCOR 20MG PO SCH (22:53)
--- NOTE | 2022-01-16 23:43 | PCM.NOTE ---
Date and Time: 01/16/222331 Subjective Assessment: Patient states he is feeling better in every way and looking foreward to going home. St[employer] Dr Abarca consult appreciated and advised completetion or Remdisivir prior to discharge. OBJECTIVE DATA Vital Signs: Vital Signs - 24 hr Temp Pulse Resp BP Pulse Ox 01/16/22 20:00 97.2 F 74 20 142/61 96 01/16/22 19:18 63 20 96 01/16/22 18:00 20 01/16/22 16:00 97.1 F 54 L 18 118/78 100 01/16/22 14:00 19 01/16/22 12:00 97.7 F 63 20 143/75 98 01/16/22 10:00 20 01/16/22 08:00 18 01/16/22 07:37 97.1 F 58 L 21 142/87 96 01/16/22 07:34 59 L 17 91 L 01/16/22 06:00 20 01/16/22 04:00 96.9 F 65 23 126/87 95 01/15/22 23:53 16 01/15/22 23:41 96.2 F 57 L 15 143/67 96 Pain Assessment - Last Documented Pain Intensity 0 Intake and Output: Intake & Output 01/14/22 01/15/22 01/16/22 01/17/22 11:59 11:59 11:59 11:59 Intake Total 5904 8808 4478 Output Total 3500 4300 Balance 2404 4508 4478 Weight 69.5 kg 78.9 kg Lab Results: Lab Results-Last 24 Hours 01/16/22 01/16/22 01/16/22 Range/Units 05:02 05:02 05:02 WBC 12.4 H (4.0-10.5) x10^3/uL RBC 3.89 L (4.1-5.6) x10^6/uL Hgb 10.5 L (12.5-18.0) g/dL Hct 29.9 L (42-50) % MCV 76.9 L (78-100) fL MCH 27.0 (26-32) pg MCHC 35.1 (32-36) g/dL RDW 19.5 H (11.5-14.0) % Plt Count 293 (150-450) x10^3/uL MPV 11.6 H (7.5-11.0) fL Segmented Neutrophils 93 H (36.-66.) % Lymphocytes (Manual) 7 L (24-44) % Platelet Estimate NORMAL (NORMAL) RBC Morphology ABNORMAL Anisocytosis 1+ Sodium 132 L (137-145) mmol/L Potassium 4.6 (3.5-5.1) mmol/L Chloride 108 H (98-107) mmol/L Carbon Dioxide 21 L (22-30) mmol/L Anion Gap 7.7 (5-15) MEQ/L BUN 25 H (9-20) mg/dL Creatinine 0.71 (0.66-1.25) mg/dL Estimated GFR > 60.0 ML/MIN Glucose 112 H (74-106) mg/dL POC Glucometer (74 to 106) mg/dL Calcium 7.6 L (8.4-10.2) mg/dL Total Bilirubin 1.00 (0.2-1.3) mg/dL AST 336 H (17-59) U/L ALT 189 H (0-50) U/L Alkaline Phosphatase 358 H (38-126) U/L NT-Pro-B Natriuret Pep 926 H (0-900) pg/mL Serum Total Protein 5.4 L (6.3-8.2) g/dL Albumin 2.0 L (3.5-5.0) g/dL 01/16/22 01/16/22 01/16/22 Range/Units 07:18 12:10 16:29 WBC (4.0-10.5) x10^3/uL RBC (4.1-5.6) x10^6/uL Hgb (12.5-18.0) g/dL Hct (42-50) % MCV (78-100) fL MCH (26-32) pg MCHC (32-36) g/dL RDW (11.5-14.0) % Plt Count (150-450) x10^3/uL MPV (7.5-11.0) fL Segmented Neutrophils (36.-66.) % Lymphocytes (Manual) (24-44) % Platelet Estimate (NORMAL) RBC Morphology Anisocytosis Sodium (137-145) mmol/L Potassium (3.5-5.1) mmol/L Chloride (98-107) mmol/L Carbon Dioxide (22-30) mmol/L Anion Gap (5-15) MEQ/L BUN (9-20) mg/dL Creatinine (0.66-1.25) mg/dL Estimated GFR ML/MIN Glucose (74-106) mg/dL POC Glucometer 126 H 137 H 78 (74 to 106) mg/dL Calcium (8.4-10.2) mg/dL Total Bilirubin (0.2-1.3) mg/dL AST (17-59) U/L ALT (0-50) U/L Alkaline Phosphatase (38-126) U/L NT-Pro-B Natriuret Pep (0-900) pg/mL Serum Total Protein (6.3-8.2) g/dL Albumin (3.5-5.0) g/dL 01/16/22 Range/Units 20:52 WBC (4.0-10.5) x10^3/uL RBC (4.1-5.6) x10^6/uL Hgb (12.5-18.0) g/dL Hct (42-50) % MCV (78-100) fL MCH (26-32) pg MCHC (32-36) g/dL RDW (11.5-14.0) % Plt Count (150-450) x10^3/uL MPV (7.5-11.0) fL Segmented Neutrophils (36.-66.) % Lymphocytes (Manual) (24-44) % Platelet Estimate (NORMAL) RBC Morphology Anisocytosis Sodium (137-145) mmol/L Potassium (3.5-5.1) mmol/L Chloride (98-107) mmol/L Carbon Dioxide (22-30) mmol/L Anion Gap (5-15) MEQ/L BUN (9-20) mg/dL Creatinine (0.66-1.25) mg/dL Estimated GFR ML/MIN Glucose (74-106) mg/dL POC Glucometer 101 (74 to 106) mg/dL Calcium (8.4-10.2) mg/dL Total Bilirubin (0.2-1.3) mg/dL AST (17-59) U/L ALT (0-50) U/L Alkaline Phosphatase (38-126) U/L NT-Pro-B Natriuret Pep (0-900) pg/mL Serum Total Protein (6.3-8.2) g/dL Albumin (3.5-5.0) g/dL Multi-Disciplinary Progress Notes: Multi-Disciplinary Progress Notes 01/16/22 13:53 Case Management Note by Gala Blevins PATIENT USES [facility] FOR MEDS. SCRIPTS CAN BE FAXED TO [facility] AT [phone] AND PATIENT CAN PICK THEM UP THERE. Initialized on 01/16/22 13:53 - END OF NOTE 01/16/22 10:44 Case Management Note by Gala Blevins S/W PATIENT REGARDING NEEDS AT DC- HE REPORTS HE IS FEELING MUCH BETTER. HE IS NOW ON ROOM AIR. HE DENIES ANY NEW NEEDS AT TIME OF DC. HE REPORTS HE HAS A WALKER AT HOME TO USE NEEDED AND HAS FAMILY TO CHECK IN ON HIM. HE PLANS TO RETURN HOME TO HIS PRIOR LEVEL OF FUNCTIONING. PATIENT WILL NEED RX SENT TO [facility] AT TIME OF DC Initialized on 01/16/22 10:44 - END OF NOTE Assessment/Plan (1) DKA (diabetic ketoacidosis) Current Visit: Yes Status: Acute Qualifiers: Code(s): E11.10 - TYPE 2 DIABETES MELLITUS WITH KETOACIDOSIS WITHOUT COMA (2) Pneumonia Current Visit: Yes Status: Acute Qualifiers: Laterality: right Code(s): J18.9 - PNEUMONIA, UNSPECIFIED ORGANISM (3) COVID-19 virus detected Current Visit: Yes Status: Acute Code(s): U07.1 - COVID-19 (4) Sepsis Current Visit: Yes Status: Acute (5) Hypokalemia Current Visit: Yes Status: Resolved Code(s): E87.6 - HYPOKALEMIA (6) Elevated d-dimer Current Visit: Yes Status: Acute Code(s): R79.89 - OTHER SPECIFIED ABNORMAL FINDINGS OF BLOOD CHEMISTRY
[2022-01-17] MEDS: PIPERACILLIN/TAZOBACTAM 3.375 GM in Sodium Chloride 100ML MINI-BAG PLUS 100 ML IV SCH ×4 (05:35→16:32)
[2022-01-17 07:21] VITALS: O2SAT 98
[2022-01-17] MEDS: HUMALOG SQ SCH ×2 (07:52→12:24)
[2022-01-17] MEDS: ECOTRIN 81 MG PO SCH (09:03)
[2022-01-17] MEDS: Zestril 5 MG PO SCH (09:03)
[2022-01-17] MEDS: Klor Con PO SCH (09:03)
[2022-01-17] MEDS: CLARITIN 10 MG PO SCH (09:04)
[2022-01-17] MEDS: Protonix 40MG Tablet PO SCH (09:04)
[2022-01-17] MEDS: Mucinex 600MG ER Tabs PO SCH (09:04)
[2022-01-17] MEDS: Decadron 4 MG INJ IV SCH (09:04)
[2022-01-17] MEDS: ENOXAPARIN SODIUM SQ SCH (09:05)
[2022-01-17] MEDS: Flonase NASAL NS SCH (09:06)
[2022-01-17 10:22] LABS: ANION GAP 7.7 MEQ/L (5-15); BLOOD UREA NITROGEN 21 mg/dL (9-20); CHLORIDE 110 mmol/L (98-107); Calcium 7.8 mg/dL (8.4-10.2); Carbon Dioxide 20 mmol/L (22-30); Creatinine 1 0.73 mg/dL (0.66-1.25); EST GLOMERULAR FILTRATION RATE > 60.0 ML/MIN; Potassium 4.5 mmol/L (3.5-5.1); SODIUM 133 mmol/L (137-145)
[2022-01-17 10:33] LABS: Glucose 38 mg/dL (74-106)
[2022-01-17] MEDS: REMDESIVIR 100 MG in Sodium Chloride 0.9% 100 ML IV SCH (10:43)
[2022-01-17] MEDS: Lantus Insulin SQ SCH (10:43)
[2022-01-17] MEDS: MARY'S MAGIC MOUTHWASH PO SCH ×2 (10:43→16:32)
[2022-01-17 10:57] LABS: Hematocrit 32.7 % (42-50); Hemoglobin 11.2 g/dL (12.5-18.0); Mean Cell Volume 79.2 fL (78-100); Mean Corpuscular Hemoglobin 27.1 pg (26-32); Mean Corpuscular Hgb Concent. 34.3 g/dL (32-36); Mean Platelet Volume 11.8 fL (7.5-11.0); Platelet Count 373 x10^3/uL (150-450); Red Blood Count 4.13 x10^6/uL (4.1-5.6); White Blood Count 10.9 x10^3/uL (4.0-10.5)
[2022-01-17 11:34] LABS: Lymphocytes 14 % (24-44); Monocyte 2 % (0.0-12.0); Platelet Estimate NORMAL (NORMAL); Total Cells Counted 100
[2022-01-17 11:43] VITALS: BP 140/80; PULSE 65
[2022-01-17 12:45] LABS: ANION GAP 10.1 MEQ/L (5-15); BLOOD UREA NITROGEN 18 mg/dL (9-20); CHLORIDE 104 mmol/L (98-107); Calcium 7.6 mg/dL (8.4-10.2); Carbon Dioxide 22 mmol/L (22-30); Creatinine 1 0.76 mg/dL (0.66-1.25); EST GLOMERULAR FILTRATION RATE > 60.0 ML/MIN; Glucose 177 mg/dL (74-106); Potassium 4.5 mmol/L (3.5-5.1); SODIUM 131 mmol/L (137-145)
--- NOTE | 2022-01-17 12:59 | PCM.DCORD ---
- Discharge Disposition: Home, Self-Care Condition: Good Prescriptions: New Prednisone 10 mg [Deltasone 10 mg] 10 mg PO BID #30 tablet Apixaban [Eliquis 5 mg Tablet] 5 mg PO BID 30 Days #60 tablet Albuterol Common Canister [Ventolin Common Canister] 2 puff IH Q4H PRN PRN #1 PRN Reason: Shortness Of Breath/Wheezing Continue Aspirin EC 81 mg [Ecotrin 81 mg] 81 mg PO DAILY Omeprazole Magnesium [Prilosec Otc] 20 mg PO DAILY Insulin Glargine [Lantus Insulin] 32 unit SQ QAM Insulin Aspart [NovoLOG Insulin] 10 unit SQ QAM Lisinopril 10 mg [Zestril 10 MG] 5 mg PO DAILY Simvastatin 20 mg PO QHS Fluticasone Propionate [Flonase NASAL] 2 spray NS DAILY Cetirizine HCl [Zyrtec] 10 mg PO DAILY Additional Instructions: [facility] hospital follow up appt in 1 week,may follow up with Dr Bradshaw at [facility] Physician if needed Follow up with: MEMA DUNCAN [ACTIVE STAFF] - 02/08/22 3:15 pm ([place] Office)
--- NOTE | 2022-01-17 13:06 | PCM.DS ---
Discharge Summary Date of Admission: 01/13/22 03:35 Date of Discharge: 01/17/22 Admitting Physician: MANJU BRADSHAW DO Consults: Consults on Case 01/13/22 07:15 Consult Pulmonology ROUTINE Primary Care Provider: [facility] Allergies Allergies No Known Drug Allergies Allergy (Verified 01/13/22 04:39) Hospital Summary - Hospital Course Hospital Course: Patient was admitted to ICU on insulin drip from [facility] ER for tx of DKA and COVID ,respiratory failure. He is IDDM followed by [facility]. - Vitals & Intake/Output Vital Signs: Vital Signs Temperature 97.5 F 01/17/22 11:41 Pulse Rate 65 01/17/22 11:41 Respiratory Rate 18 01/17/22 12:00 Blood Pressure 140/80 01/17/22 11:41 O2 Sat by Pulse Oximetry 98 01/17/22 08:29 Intake & Output: Intake & Output 01/15/22 01/16/22 01/17/22 01/18/22 11:59 11:59 11:59 11:59 Intake Total 8808 4478 480 Output Total 4300 Balance 4508 4478 480 Weight 78.9 kg 78.9 kg - Lab Result Diagrams: 01/17/22 05:00 01/17/22 11:35 Lab Results-Last 24 Hrs: Lab Results-Last 24 Hours 01/16/22 01/16/22 01/17/22 Range/Units 16:29 20:52 05:00 WBC 10.9 H (4.0-10.5) x10^3/uL RBC 4.13 (4.1-5.6) x10^6/uL Hgb 11.2 L (12.5-18.0) g/dL Hct 32.7 L (42-50) % MCV 79.2 (78-100) fL MCH 27.1 (26-32) pg MCHC 34.3 (32-36) g/dL RDW 20.0 H (11.5-14.0) % Plt Count 373 (150-450) x10^3/uL MPV 11.8 H (7.5-11.0) fL Segmented Neutrophils 84 H (36.-66.) % Lymphocytes (Manual) 14 L (24-44) % Monocytes (Manual) 2 (0.0-12.0) % Platelet Estimate NORMAL (NORMAL) RBC Morphology NORMAL D-Dimer (0.0-0.50) mg/L Sodium (137-145) mmol/L Potassium (3.5-5.1) mmol/L Chloride (98-107) mmol/L Carbon Dioxide (22-30) mmol/L Anion Gap (5-15) MEQ/L BUN (9-20) mg/dL Creatinine (0.66-1.25) mg/dL Estimated GFR ML/MIN Glucose (74-106) mg/dL POC Glucometer 78 101 (74 to 106) mg/dL Calcium (8.4-10.2) mg/dL NT-Pro-B Natriuret Pep (0-900) pg/mL 01/17/22 01/17/22 01/17/22 Range/Units 05:00 05:15 07:09 WBC (4.0-10.5) x10^3/uL RBC (4.1-5.6) x10^6/uL Hgb (12.5-18.0) g/dL Hct (42-50) % MCV (78-100) fL MCH (26-32) pg MCHC (32-36) g/dL RDW (11.5-14.0) % Plt Count (150-450) x10^3/uL MPV (7.5-11.0) fL Segmented Neutrophils (36.-66.) % Lymphocytes (Manual) (24-44) % Monocytes (Manual) (0.0-12.0) % Platelet Estimate (NORMAL) RBC Morphology D-Dimer (0.0-0.50) mg/L Sodium 133 L (137-145) mmol/L Potassium 4.5 (3.5-5.1) mmol/L Chloride 110 H (98-107) mmol/L Carbon Dioxide 20 L (22-30) mmol/L Anion Gap 7.7 (5-15) MEQ/L BUN 21 H (9-20) mg/dL Creatinine 0.73 (0.66-1.25) mg/dL Estimated GFR > 60.0 ML/MIN Glucose 38 L* (74-106) mg/dL POC Glucometer 39 L* (74 to 106) mg/dL Calcium 7.8 L (8.4-10.2) mg/dL NT-Pro-B Natriuret Pep 998 H (0-900) pg/mL 01/17/22 01/17/22 01/17/22 Range/Units 07:50 10:45 11:18 WBC (4.0-10.5) x10^3/uL RBC (4.1-5.6) x10^6/uL Hgb (12.5-18.0) g/dL Hct (42-50) % MCV (78-100) fL MCH (26-32) pg MCHC (32-36) g/dL RDW (11.5-14.0) % Plt Count (150-450) x10^3/uL MPV (7.5-11.0) fL Segmented Neutrophils (36.-66.) % Lymphocytes (Manual) (24-44) % Monocytes (Manual) (0.0-12.0) % Platelet Estimate (NORMAL) RBC Morphology D-Dimer 6.02 H* (0.0-0.50) mg/L Sodium (137-145) mmol/L Potassium (3.5-5.1) mmol/L Chloride (98-107) mmol/L Carbon Dioxide (22-30) mmol/L Anion Gap (5-15) MEQ/L BUN (9-20) mg/dL Creatinine (0.66-1.25) mg/dL Estimated GFR ML/MIN Glucose (74-106) mg/dL POC Glucometer 111 H TNP (74 to 106) mg/dL Calcium (8.4-10.2) mg/dL NT-Pro-B Natriuret Pep (0-900) pg/mL 01/17/22 01/17/22 Range/Units 11:19 11:35 WBC (4.0-10.5) x10^3/uL RBC (4.1-5.6) x10^6/uL Hgb (12.5-18.0) g/dL Hct (42-50) % MCV (78-100) fL MCH (26-32) pg MCHC (32-36) g/dL RDW (11.5-14.0) % Plt Count (150-450) x10^3/uL MPV (7.5-11.0) fL Segmented Neutrophils (36.-66.) % Lymphocytes (Manual) (24-44) % Monocytes (Manual) (0.0-12.0) % Platelet Estimate (NORMAL) RBC Morphology D-Dimer (0.0-0.50) mg/L Sodium 131 L (137-145) mmol/L Potassium 4.5 (3.5-5.1) mmol/L Chloride 104 (98-107) mmol/L Carbon Dioxide 22 (22-30) mmol/L Anion Gap 10.1 (5-15) MEQ/L BUN 18 (9-20) mg/dL Creatinine 0.76 (0.66-1.25) mg/dL Estimated GFR > 60.0 ML/MIN Glucose 177 H (74-106) mg/dL POC Glucometer 168 H (74 to 106) mg/dL Calcium 7.6 L (8.4-10.2) mg/dL NT-Pro-B Natriuret Pep (0-900) pg/mL Micro Results-Entire Visit: Microbiology 01/12/22 23:50 Urine Culture - Final Clean Catch Midstream NO GROWTH Accuchecks Date 01/17/22 Date 01/17/22 Date 01/16/22 Date 01/16/22 - Procedures and Test Procedures and Tests throughout Hospitalization: Therapy Orders & Screens 01/13/22 01:20 Respiratory Therapy Assessment DAILY Comment: 01/13/22 01:37 Oxygen Nasal Cannula 2 lpm Comment: 01/13/22 03:40 Oxygen Nasal Cannula 2 lpm Comment: Final Diagnosis/Problem List - Final Discharge Diagnosis/Problem (1) DKA (diabetic ketoacidosis) Current Visit: Yes Status: Acute Code(s): E11.10 - TYPE 2 DIABETES MELLITUS WITH KETOACIDOSIS WITHOUT COMA (2) Pneumonia Current Visit: Yes Status: Acute Code(s): J18.9 - PNEUMONIA, UNSPECIFIED ORGANISM (3) COVID-19 virus detected Current Visit: Yes Status: Acute Code(s): U07.1 - COVID-19 (4) Sepsis Current Visit: Yes Status: Acute (5) Hypokalemia Current Visit: Yes Status: Resolved Code(s): E87.6 - HYPOKALEMIA (6) Elevated d-dimer Current Visit: Yes Status: Acute Code(s): R79.89 - OTHER SPECIFIED ABNORMAL FINDINGS OF BLOOD CHEMISTRY - Discharge Disposition: Home, Self-Care Condition: Good Prescriptions: New Prednisone 10 mg [Deltasone 10 mg] 10 mg PO BID #30 tablet Apixaban [Eliquis 5 mg Tablet] 5 mg PO BID 30 Days #60 tablet Albuterol Common Canister [Ventolin Common Canister] 2 puff IH Q4H PRN PRN #1 PRN Reason: Shortness Of Breath/Wheezing Continue Aspirin EC 81 mg [Ecotrin 81 mg] 81 mg PO DAILY Omeprazole Magnesium [Prilosec Otc] 20 mg PO DAILY Insulin Glargine [Lantus Insulin] 32 unit SQ QAM Insulin Aspart [NovoLOG Insulin] 10 unit SQ QAM Lisinopril 10 mg [Zestril 10 MG] 5 mg PO DAILY Simvastatin 20 mg PO QHS Fluticasone Propionate [Flonase NASAL] 2 spray NS DAILY Cetirizine HCl [Zyrtec] 10 mg PO DAILY Additional Instructions: [facility] hospital follow up appt in 1 week,may follow up with Dr Bradshaw at [facility] Physician if needed Follow up with: EMMA DUNCAN [ACTIVE STAFF] - 02/08/22 3:15 pm ([place] Office)
== END 2022-01-17 13:50 | disposition home or self-care (01) | DRG 637 ==
LOC: ED 23:00 → MED SURG 01-13 03:35
PROVIDERS: ADMIT Family Medicine; ATTEND Family Medicine
DX: E11.10 Type 2 diabetes mellitus with ketoacidosis without coma (principal); J18.9 Pneumonia, unspecified organism; U07.1 COVID-19; A41.9 Sepsis, unspecified organism; E87.6 Hypokalemia; I10 Essential (primary) hypertension; E78.5 Hyperlipidemia, unspecified; R79.89 Other specified abnormal findings of blood chemistry; Z79.899 Other long term (current) drug therapy; Z20.828 Contact with and (suspected) exposure to other viral communicable diseases
CPT/HCPCS: 0241U; 36000; 36415; 51702; 71250; 71260; 74176; 80048; 80053; 81015; 82805; 82947; 83036; 83605; 83690; 83735; 83880; 84100; 84132; 84145; 85025; 85379; 87086; 93005; 93041; 94640; 94760; 94762; 96360; 96374; 99285; 99291; J0248; J1100; J1650; J1815; J1817; J1956; J2405; J3480; A9270-GY

== ENCOUNTER 2022-12-03 00:12 | Emergency (ER) | payer OTHER ==
--- NOTE | 2022-12-03 00:31 | ERPHSYRPT ---
- History of Present Illness Time Seen by Provider: 12/03/22 00:31 Source: patient Exam Limitations: no limitations Physician History: This is a 57-year-old diabetic white male who was at home doing well all day when he turned his head suddenly to the right side at approximately 8 PM he had a sudden onset of severe sharp pain in the right side of his neck posterior lat erally and into the right side of his head. He did not fall or have any head injury. He is never had anything like this before. He has no change in his vision. Patient does have a history of hypertension, hyperlipidemia and gastroesophageal reflux disease. He presents to the emergency room yelling and screaming and cursing because he felt he was not getting the help he needed quick enough. Patient states he does have a ride home. Patient states he has not been having any fevers or flulike symptoms. Timing/Duration: today Cough Quality/Degree: no cough Possible Cause: no prior episodes Modifying Factors: Improves With: other (Movement of his head and neck) Associated Symptoms: headache (Right side), other (No cervical spine pain. However there is pain in the distribution of the right paraspinous muscle at the cervical spine level) Allergies/Adverse Reactions: No Known Drug Allergies Allergy (Verified 12/03/22 00:52) Home Medications: Aspirin EC 81 mg [Ecotrin 81 mg] 81 mg PO DAILY 07/23/19 [History] Insulin Aspart [NovoLOG Insulin] 18 unit SQ QAM 07/23/19 [History] Insulin Glargine [Lantus Insulin] 25 unit SQ BID 07/23/19 [History] Omeprazole Magnesium [Prilosec Otc] 40 mg PO DAILY 07/23/19 [History] Cetirizine HCl [Zyrtec] 10 mg PO DAILY 01/13/22 [History] Fluticasone Propionate [Flonase NASAL] 2 spray NS DAILY 01/13/22 [History] Lisinopril 10 mg [Zestril 10 MG] 5 mg PO DAILY 01/13/22 [History] Simvastatin 20 mg PO QHS 01/13/22 [History] Hx Influenza Vaccination/Date Given: Yes Travel Risk - International Travel Have you traveled outside of the country in past 3 weeks: No - Coronavirus Screening Are you exhibiting any of the following symptoms?: No Close contact with a COVID-19 positive Pt in past 14-21 Days: No - Vaccine Status Have you recieved a Covid-19 vaccination: Yes Energy Scheduler: Moderna - Vaccination Dates Date of 2cond Vaccination (if applicable): june 2021 - Review of Systems Constitutional: No Symptoms Eyes: No Symptoms Ears, Nose, & Throat: No Symptoms Respiratory: No Symptoms Cardiac: No Symptoms Abdominal/Gastrointestinal: No Symptoms Genitourinary Symptoms: No Symptoms Musculoskeletal: Other (Sharp pain in the right paraspinous muscle at the cervical spine level) Skin: No Symptoms Neurological: No Symptoms Psychological: No Symptoms Endocrine: No Symptoms Hematologic/Lymphatic: No Symptoms Immunological/Allergic: No Symptoms All Other Systems: Reviewed and Negative - Past Medical History Pertinent Past Medical History: Yes Neurological History: No Pertinent History ENT History: No Pertinent History Cardiac History: High Cholesterol, Hypertension Respiratory History: Pneumonia Endocrine Medical History: Diabetes Type II Musculoskeletal History: No Pertinent History GI Medical History: GERD History: No Pertinent History Psycho-Social History: No Pertinent History Male Reproductive Disorders: No Pertinent History - Past Surgical History Past Surgical History: No - Social History Smoking Status: Former smoker Exposure to second hand smoke: No Drug Use: none Patient Lives Alone: Yes - Nursing Vital Signs Nursing Vital Signs: Initial Vital Signs Temperature 97.5 F 12/03/22 00:40 Pulse Rate 68 12/03/22 00:40 Respiratory Rate 20 12/03/22 00:40 Blood Pressure 187/103 12/03/22 00:40 O2 Sat by Pulse Oximetry 98 12/03/22 00:40 Pain Scale Pain Intensity 8 - Physical Exam General Appearance: no apparent distress, alert, anxiety Eye Exam: PERRL/EOMI, eyes nml inspection Ears, Nose, Throat Exam: normal ENT inspection, moist mucous membranes Neck Exam: normal inspection, non-tender, supple, full range of motion Respiratory Exam: normal breath sounds, lungs clear, airway intact, No chest tenderness, No respiratory distress Cardiovascular Exam: regular rate/rhythm, normal heart sounds, normal peripheral pulses Gastrointestinal/Abdomen Exam: No tenderness Rectal Exam: not done Back Exam: normal inspection, normal range of motion, No CVA tenderness Extremity Exam: normal inspection, normal range of motion, pelvis stable Neurologic Exam: alert, oriented x 3, cooperative, shipmaster II-XII nml as tested, nml cerebellar function, nml station & gait, sensation nml, other (Patient neurologically intact) Skin Exam: normal color, warm, dry Lymphatic Exam: No adenopathy SpO2 Interpretation: normal O2 Delivery: Room Air - Course Nursing assessment & vital signs reviewed: Yes Ordered Tests: Active Orders 24 hr Category Date Time Status IV Insertion STAT Care 12/03/22 01:49 Active Pulse Oximetry (ED) STAT Care 12/03/22 01:49 Active CERVICAL SPINE WO CONTRAST [CT] Stat Exams 12/03/22 00:49 Completed HEAD WITHOUT CONTRAST [CT] Stat Exams 12/03/22 00:49 Completed CBC W DIFF Stat Lab 12/03/22 02:00 Completed CMP Stat Lab 12/03/22 02:00 Completed PROTIME WITH INR Stat Lab 12/03/22 02:00 Completed Medication Summary Discontinued Medications Generic Name Dose Route Start Last Admin Trade Name Freq PRN Reason Stop Dose Admin Methylprednisolone Sodium 0 mg 12/03/22 00:51 12/03/22 01:05 Succinate 125 mg/ Sterile IM 12/03/22 00:52 125 mg Water 2 ml STAT ONE Administration Enalaprilat 1.25 mg 12/03/22 01:48 12/03/22 01:59 Enalaprilat 2.5 Mg Injection IV 12/03/22 01:49 1.25 mg STAT ONE Administration Enalaprilat Confirm 12/03/22 01:58 Enalaprilat 2.5 Mg Injection Administered 12/03/22 01:59 Dose 2.5 mg IV .STK-MED ONE Labetalol HCl 10 mg 12/03/22 02:38 12/03/22 02:39 Labetalol Hcl 20 Mg/4 Ml Disp.Syringe IV 12/03/22 02:39 10 mg STAT ONE Administration Labetalol HCl Confirm 12/03/22 02:38 Labetalol Hcl 20 Mg/4 Ml Disp.Syringe Administered 12/03/22 02:39 Dose 20 mg IV .STK-MED ONE Methylprednisolone Sodium Succinate Confirm 12/03/22 01:03 Methylprednis Sod Succ 125 Mg/2 Ml Vial Administered 12/03/22 01:04 Dose 125 mg .ROUTE .STK-MED ONE Orphenadrine Citrate 60 mg 12/03/22 00:51 12/03/22 01:04 Orphenadrine Citrate 60 Mg/2 Ml Vial IM 12/03/22 00:52 60 mg STAT ONE Administration Orphenadrine Citrate Confirm 12/03/22 01:03 Orphenadrine Citrate 60 Mg/2 Ml Vial Administered 12/03/22 01:04 Dose 60 mg .ROUTE .STK-MED ONE Oxycodone/Acetaminophen 1 tab 12/03/22 00:51 12/03/22 01:04 Oxycodone Hcl/Apap 5 Mg/325 Mg Tablet PO 12/03/22 00:52 1 tab STAT STA Administration Oxycodone/Acetaminophen Confirm 12/03/22 01:03 Oxycodone Hcl/Apap 5 Mg/325 Mg Tablet Administered 12/03/22 01:04 Dose 1 tab .ROUTE .STK-MED ONE Sterile Water Confirm 12/03/22 01:03 Water For Injection,Sterile 10 Ml Vial Administered 12/03/22 01:04 Dose 10 ml IJ .STK-MED ONE Lab/Rad Data: Laboratory Result Diagrams 12/03/22 02:00 12/03/22 02:00 Laboratory Results 12/03/22 12/03/22 12/03/22 Range/Units 02:00 02:00 02:00 WBC 16.3 H (4.0-10.5) x10^3/uL RBC 3.75 L (4.1-5.6) x10^6/uL Hgb 10.7 L (12.5-18.0) g/dL Hct 32.3 L (42-50) % MCV 86.1 (78-100) fL MCH 28.5 (26-32) pg MCHC 33.1 (32-36) g/dL RDW 14.9 H (11.5-14.0) % Plt Count 418 (150-450) x10^3/uL MPV 9.1 (7.5-11.0) fL Gran % 88.7 H (36.0-66.0) % Immature Gran % (Auto) 0.6 H (0.00-0.4) % Nucleat RBC Rel Count 0.0 (0.00-0.1) % Eos # (Auto) 0.09 (0-0.5) x10^3/uL Immature Gran # (Auto) 0.10 H (0.00-0.03) x10^3u/L Absolute Lymphs (auto) 1.13 (1.0-4.6) x10^3/uL Absolute Monos (auto) 0.44 (0.0-1.3) x10^3/uL Absolute Nucleated RBC 0.00 (0.00-0.01) x10^3u/L Lymphocytes % 6.9 L (24.0-44.0) % Monocytes % 2.7 (0.0-12.0) % Eosinophils % 0.6 (0.00-5.0) % Basophils % 0.5 (0.0-0.4) % Absolute Granulocytes 14.49 H (1.4-6.9) x10^3/uL Basophils # 0.08 (0-0.4) x10^3/uL PT 10.3 (9.4-12.5) SECONDS INR 0.94 (0.8-3.0) Sodium 136 L (137-145) mmol/L Potassium 4.1 (3.5-5.1) mmol/L Chloride 101 (98-107) mmol/L Carbon Dioxide 27 (22-30) mmol/L Anion Gap 12.9 (5-15) MEQ/L BUN 12 (9-20) mg/dL Creatinine 0.86 (0.66-1.25) mg/dL Estimated GFR > 60.0 ML/MIN Glucose 337 H (74-106) mg/dL Calcium 8.5 (8.4-10.2) mg/dL Total Bilirubin 0.40 (0.2-1.3) mg/dL AST 41 (17-59) U/L ALT 34 (0-50) U/L Alkaline Phosphatase 271 H (38-126) U/L Serum Total Protein 7.7 (6.3-8.2) g/dL Albumin 3.8 (3.5-5.0) g/dL - Progress Progress: improved Air Movement: good Progress Note: 12/03/22 01:13 This patient's medical issue is 1 of high complexity. The level of complexity and the work-up performed is based on review of the patient's past medical history, review of the patient's medication list, review of the patient's drug allergy list, history of present illness and physical findings on examination. Work-up includes CT scan of the head and neck. This patient's pain came on suddenly. It appears to be more muscle skeletal however it was sharp severe sudden onset and includes headache on the right side as well. I do not feel this patient has any evidence of meningitis. He has no fevers. He has no cervi chito spine pain. The pain is in the distribution of the muscle and not the spine itself. He has been feeling fine without flulike symptoms. The pain came on suddenly after sudden movement of his head and neck to the right side. 12/03/22 02:02 CT scan of the cervical spine is negative for any acute fracture or subluxation. CT scan of the head without contrast shows increased attenuation in the basal cisterns consistent with subarachnoid hemorrhage the brainstem and latoya appear normal. There is no shift of midline structures. The radiologist informed there is a moderate amount of hemorrhage present. 12/03/22 02:04 12/03/22 02:39 I spoke with neurosurgeon at [facility], Dr. Levine. I reviewed the patient history, physical findings and the results of the work-up performed and the current vital signs of the patient. This neurosurgeon stated that they will perform a CTA at their facility and that he accepts the patient in transfer emergency room to emergency room. We are arranging transportation with the flight crew to transport her patient to [facility] emergency department. Blood Culture(s) Obtained: No Antibiotics given: No Counseled pt/family regarding: diagnosis, need for follow-up, rad results Medical Desision Making - Discussion of managment Agreed on:: Treatment plan - Diagnostic Testing Radiological Interpretation: Reviewed by me, Teleradiologist Report - Risk of complications The pt has a high risk of morbidity or mortality based on: Decision regarding hospitilization or escalation of hosp level of care - Departure Departure Disposition: Transfer Clinical Impression: Cervical muscle strain, Subarachnoid hemorrhage, Hyperglycemia Condition: Stable Critical Care Time: Yes Critical Care Time(excluding separately billable procedures): Critical 30-74 mins (45) Referrals: HOSPITAL,'S [Primary Care Provider] - Follow up/PCP as directed
[2022-12-03] MEDS ORDERED: PERCOCET TABLET 5/325MG PO STA (00:51)
[2022-12-03] MEDS ORDERED: Norflex 60 MG/2 ML IM ONE (00:51)
[2022-12-03] MEDS ORDERED: solu-MEDROL 125 MG, Sterile H2O 10 ml 2 ML IM ONE ×2 (00:51)
[2022-12-03] MEDS ORDERED: PERCOCET TABLET 5/325MG ONE (01:03)
[2022-12-03] MEDS ORDERED: solu-MEDROL ONE (01:03)
[2022-12-03] MEDS ORDERED: Norflex 60 MG/2 ML ONE (01:03)
[2022-12-03] MEDS ORDERED: Sterile H2O 10 ml IJ ONE (01:03)
[2022-12-03] MEDS ORDERED: ENALAPRILAT 2.5 MG INJECTION IV ONE ×2 (01:48→01:58)
--- NOTE | 2022-12-03 01:52 | XRAY ---
CLINICAL HISTORY:Pain R paraspinous muscle; GIBBS COMPARISON:None; TECHNIQUES:Multiple, contiguous, non-enhanced CT scan of the brain in the axial plane with multiplanar reconstructions in bony and soft tissue windows. CTDI- 73.87 mGy ;Total DLP-1408.61 mGy.cm; FINDINGS: There is increased attenuation in the basal cisterns consistent with subarachnoid hemorrhage. Normal size and shape of the ventricles. Basal ganglia, thalamus and internal capsule appear normal. Brainstem and latoya appear normal. No shift of midline structures. Unremarkable posterior fossa. Largely preserved cranial calvarial bones. Visualized paranasal sinuses appear clear. IMPRESSION: Increased attenuation in the basal cisterns consistent with subarachnoid hemorrhage. Andrea Moser was called with the results at 01:45 AM EST, 12/03/2022. Electronically Signed by: Heriberto Patino MD. (12/03/2022 00:45:20 TEST EQUIPMENT MECHANIC)
--- NOTE | 2022-12-03 01:56 | XRAY ---
CLINICAL HISTORY:Pain right paraspinous muscle COMPARISON:None; TECHNIQUES:Thin axial CT of the cervical spine was performed with sagittal and coronal reconstructions without contrast. DLP: 1408 mGy*cm. CTDI: 73.87 mGy; FINDINGS: Straightening of the cervical spine, likely due to muscle spasm. The vertebral bodies are normal in height. No lytic or sclerotic bone lesion. The craniovertebral measures are unremarkable. Few anterior osteophytes are noted. Intervertebral disc spaces are maintained. Normal disc height is noted. No acute fracture or dislocation seen. Prevertebral soft tissues are with in normal limits. Right apical fibrotic lung changes are noted. IMPRESSION: Straightening of the cervical spine, likely due to muscle spasm. No acute fracture or dislocation. Pre vertebral soft tissues are with in normal limits. Electronically Signed by: Heriberto Patino MD. (12/03/2022 00:49:17 BOTTOM MAN)
[2022-12-03 02:02] LABS: Absolute Neutrophil Ct (ANC) 14.49 x10^3/uL (1.4-6.9); BASOPHIL % 0.5 % (0.0-0.4); Basophil (Absolute #) 0.08 x10^3/uL (0-0.4); Eosinophil % 0.6 % (0.00-5.0); Eosinophil (Absolute #) 0.09 x10^3/uL (0-0.5); Hematocrit 32.3 % (42-50); Hemoglobin 10.7 g/dL (12.5-18.0); IMMATURE GRAN % 0.6 % (0.00-0.4); Lymphocyte (Absolute #) 1.13 x10^3/uL (1.0-4.6); Lymphocytes % 6.9 % (24.0-44.0); Mean Cell Volume 86.1 fL (78-100); Mean Corpuscular Hemoglobin 28.5 pg (26-32); Mean Corpuscular Hgb Concent. 33.1 g/dL (32-36); Mean Platelet Volume 9.1 fL (7.5-11.0); Monocyte (Absolute #) 0.44 x10^3/uL (0.0-1.3); Monocytes % 2.7 % (0.0-12.0); Neutrophil % 88.7 % (36.0-66.0); Platelet Count 418 x10^3/uL (150-450); Red Blood Count 3.75 x10^6/uL (4.1-5.6); Red Cell Distribution Width 14.9 % (11.5-14.0); White Blood Count 16.3 x10^3/uL (4.0-10.5)
[2022-12-03 02:19] LABS: ALBUMIN 3.8 g/dL (3.5-5.0); ALKALINE PHOSPHATASE 271 U/L (38-126); ANION GAP 12.9 MEQ/L (5-15); BLOOD UREA NITROGEN 12 mg/dL (9-20); CHLORIDE 101 mmol/L (98-107); Calcium 8.5 mg/dL (8.4-10.2); Carbon Dioxide 27 mmol/L (22-30); Creatinine 1 0.86 mg/dL (0.66-1.25); EST GLOMERULAR FILTRATION RATE > 60.0 ML/MIN; Glucose 337 mg/dL (74-106); Potassium 4.1 mmol/L (3.5-5.1); SGOT/AST 41 U/L (17-59); SGPT/ALT 34 U/L (0-50); SODIUM 136 mmol/L (137-145); Total Protein 7.7 g/dL (6.3-8.2)
[2022-12-03 02:20] LABS: INR 0.94 (0.8-3.0); PROTIME 10.3 SECONDS (9.4-12.5)
[2022-12-03] MEDS ORDERED: TRANDATE 20 MG/4 ML SYRINGE IV ONE ×2 (02:38)
[2022-12-03 06:34] VITALS: BP 159/76; PULSE 76; O2SAT 95
== END 2022-12-03 06:30 | disposition short-term general hospital (02) ==
LOC: ED 00:12
DX: S16.1XXA Strain of muscle, fascia and tendon at neck level, initial encounter (principal); I60.9 Nontraumatic subarachnoid hemorrhage, unspecified; E11.65 Type 2 diabetes mellitus with hyperglycemia; I10 Essential (primary) hypertension; E78.5 Hyperlipidemia, unspecified; K21.9 Gastro-esophageal reflux disease without esophagitis; Z79.899 Other long term (current) drug therapy; Z20.828 Contact with and (suspected) exposure to other viral communicable diseases
CPT/HCPCS: 36000; 36415; 70450; 72125; 80053; 85025; 85610; 94760; 96372; 96374; 99285; 99291; J2360; J2930; A9270-GY

== ENCOUNTER 2023-06-01 08:44 | Emergency (ER) | payer OTHER ==
[2023-06-01] MEDS ORDERED: D50W 50 ml Abboject IV ONE ×3 (08:47→09:20)
[2023-06-01] MEDS ORDERED: Sodium Chloride 0.9% 1000 ML 0 ML ONE (08:54)
[2023-06-01] MEDS ORDERED: Dextrose 5% -0.45 NaCl 1000 ML 1,000 ML IV ONE (08:56)
[2023-06-01 08:59] LABS: Absolute Neutrophil Ct (ANC) 5.45 x10^3/uL (1.4-6.9); BASOPHIL % 0.7 % (0.0-0.4); Basophil (Absolute #) 0.06 x10^3/uL (0-0.4); Eosinophil % 2.9 % (0.00-5.0); Eosinophil (Absolute #) 0.26 x10^3/uL (0-0.5); Hematocrit 30.1 % (42-50); Hemoglobin 9.7 g/dL (12.5-18.0); IMMATURE GRAN # 0.03 x10^3u/L (0.00-0.03); IMMATURE GRAN % 0.3 % (0.00-0.4); Lymphocyte (Absolute #) 2.41 x10^3/uL (1.0-4.6); Lymphocytes % 26.8 % (24.0-44.0); Mean Cell Volume 84.1 fL (78-100); Mean Corpuscular Hemoglobin 27.1 pg (26-32); Mean Corpuscular Hgb Concent. 32.2 g/dL (32-36); Mean Platelet Volume 9.2 fL (7.5-11.0); Monocyte (Absolute #) 0.79 x10^3/uL (0.0-1.3); Monocytes % 8.8 % (0.0-12.0); Neutrophil % 60.5 % (36.0-66.0); Platelet Count 311 x10^3/uL (150-450); Red Blood Count 3.58 x10^6/uL (4.1-5.6); Red Cell Distribution Width 15.8 % (11.5-14.0)
[2023-06-01 08:59] LABS: A-aADO2 405; ABG HEMOGLOBIN 11.3; ABG POTASSIUM 3.2 (3.5-5.1); ABG SITE LEFT BRACHIAL; ARTERIAL BLD GAS O2 SATURATION 99.2 % (95-100); ARTERIAL BLOOD GAS BASE EXCESS 1.7 (-2.0-2.0); ARTERIAL BLOOD GAS FIO2 100 %; ARTERIAL BLOOD GAS PCO2 42 mmHg (35-45); ARTERIAL BLOOD GAS PO2 256 mmHg (75-100); ARTERIAL BLOOD GAS pH 7.41 (7.35-7.45); CARBOXYHEMOGLOBIN 0.3 % THgb (0.0-6.9); HCO3- 26.6 (22-28); Methhemoglobin 0.9 % (1.4-1.5); paO2 pAO1 0.39
[2023-06-01] MEDS ORDERED: Heparin 25,000 units/D5W: USE ORDER SET PROTO 25,000 UNITS/250 ML BAG IV SCH (09:00)
[2023-06-01] MEDS ORDERED: Dextrose 5% -0.45 NaCl 1000 ML 1,000 ML IV SCH (09:00)
[2023-06-01 09:05] VITALS: TEMP 97.2
[2023-06-01 09:14] LABS: ALBUMIN 3.6 g/dL (3.5-5.0); BILIRUBIN,TOTAL 0.6 mg/dL (0.2-1.3); Calcium 8.3 mg/dL (8.4-10.2); Creatinine 1 0.86 mg/dL (0.66-1.25); EST GLOMERULAR FILTRATION RATE 101.6 ML/MIN; PROTIME 10.9 SECONDS (9.4-12.5); PTT 23.8 SECONDS (25.1-36.5); Total Protein 6.6 g/dL (6.3-8.2)
--- NOTE | 2023-06-01 09:29 | XRAY ---
Indication: Altered loss of consciousness. Stroke. Multiple contiguous axial images obtained through the head without contrast. Comparison: December 03, 2022 Ventriculosulcal pattern appears symmetric. Previous subarachnoid hemorrhage has cleared. No acute intracranial hemorrhage, abnormal extra-axial fluid collection, or mass effect. Fourth ventricle is midline without hydrocephalus. Talbot-white matter differentiation preserved. Bony calvarium intact. Visualized paranasal sinuses and mastoid air cells are clear. Impression: Negative CT head without contrast exam.
[2023-06-01 09:37] LABS: ANION GAP 10.1 MEQ/L (5-15); Potassium 3.1 mmol/L (3.5-5.1)
--- NOTE | 2023-06-01 09:45 | ERPHSYRPT ---
- History of Present Illness Source: EMS Exam Limitations: clinical condition Patient Subjective Stated Complaint: EMS states "We were called there on an unresponsive pt and he is diabetic and his sugar was 40. We are a basic service and his brother gave him his glucagon which we have right here. We put him on a non rebreather." Triage Nursing Assessment: Pt presented with eyes open and slightly combative. PT has non rebreather on. Upon arrival, iv was established and pt was given 2 amps of d 50. Pt initial fsbs was 23, after 2 amps of d50 it as 295. When looking at the glucagon that the ambulance brisa, it was not reconstituted, so pt did not recieve any glucagon. Physician History: Law Galan is a 57-year-old gentleman who was found down by his brother at approximately 8 AM this morning with presumable hypoglycemia. Patient's brother administered glucagon without turning sensorium. [facility] arrived on scene and proceeded to transfer the patient to the ER. [place] service was a BLS service, so IV access and D50 were not administered. Patient arrived to the ER not alert and not oriented but with a good airway, pulse, and blood pressure. IV access started immediately in the ER. 2 amps of D50 admi nistered to patient per nursing. Patient's sensorium gradually returned to normal. Patient was sent to CT after D50 administration, and CT of head was normal per Dr. Jacques. D5 half-normal drip was started when patient came back from CT. Patient became awake, alert, and oriented x3 slowly after D50 administration. No focal weakness observed after patient sensorium returned to normal. It also appears that the glucagon patient's brother administered was actually not given as glucagon was not reconstituted. Severity: severe Character of Deficits: altered sensation Baseline/Normal Cognition: alert oriented x 3 Current Cognition: poor alertness Allergies/Adverse Reactions: No Known Drug Allergies Allergy (Verified 12/03/22 00:52) Home Medications: Aspirin EC 81 mg [Ecotrin 81 mg] 81 mg PO DAILY 07/23/19 [History] Insulin Aspart [NovoLOG Insulin] 18 unit SQ QAM 07/23/19 [History] Insulin Glargine [Lantus Insulin] 25 unit SQ BID 07/23/19 [History] Omeprazole Magnesium [Prilosec Otc] 40 mg PO DAILY 07/23/19 [History] Cetirizine HCl [Zyrtec] 10 mg PO DAILY 01/13/22 [History] Fluticasone Propionate [Flonase NASAL] 2 spray NS DAILY 01/13/22 [History] Lisinopril 10 mg [Zestril 10 MG] 5 mg PO DAILY 01/13/22 [History] Simvastatin 20 mg PO QHS 01/13/22 [History] Hx Tetanus, Diphtheria Vaccination/Date Given: No Hx Influenza Vaccination/Date Given: Yes Hx Pneumococcal Vaccination/Date Given: No Travel Risk - International Travel Have you traveled outside of the country in past 3 weeks: No - Coronavirus Screening Are you exhibiting any of the following symptoms?: No Close contact with a COVID-19 positive Pt in past 14-21 Days: No - Vaccine Status Have you recieved a Covid-19 vaccination: Yes 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: [employer] - Vaccination Dates Date of 2cond Vaccination (if applicable): june 2021 - Review of Systems All Other Systems: Unable due to condition (Unable to obtain due to patient's clinical condition) - Past Medical History Pertinent Past Medical History: Yes Neurological History: No Pertinent History ENT History: No Pertinent History Cardiac History: High Cholesterol, Hypertension Respiratory History: Pneumonia Endocrine Medical History: Diabetes Type II Musculoskeletal History: No Pertinent History GI Medical History: GERD History: No Pertinent History Psycho-Social History: No Pertinent History Male Reproductive Disorders: No Pertinent History Other Medical History: Covid - Past Surgical History Past Surgical History: No Other Surgical History: skin grafts - Social History Smoking Status: Former smoker Exposure to second hand smoke: No Drug Use: none Patient Lives Alone: Yes - Nursing Vital Signs Nursing Vital Signs: Initial Vital Signs Temperature 97.2 F 06/01/23 08:56 Pulse Rate 71 06/01/23 08:56 Respiratory Rate 22 06/01/23 08:56 Blood Pressure 151/86 06/01/23 08:56 O2 Sat by Pulse Oximetry 98 06/01/23 08:56 Pain Scale Pain Intensity 0 Mild to moderate hypertension noted. - [place] Coma Scale Best Eye Response (Jd): (4) open spontaneously Best Verbal Response ([place]): (2) incomprehsible sounds Best Motor Response (Jd): (4) withdraws to pain [place] Total: 10 - Physical Exam General Appearance: severe distress Eye Exam: bilateral eye: normal inspection, PERRL, EOMI Ears, Nose, Throat Exam: normal ENT inspection, TMs normal, pharynx normal, moist mucous membranes Neck Exam: normal inspection Respiratory: normal breath sounds, lungs clear, airway intact Cardiovascular: regular rate/rhythm, normal heart sounds, normal peripheral pulses, No murmur Gastrointestinal: soft, normal bowel sounds Back Exam: normal inspection, normal range of motion Extremity Exam: normal inspection, normal range of motion, pelvis stable Peripheral Pulses: carotid (R): 2+, carotid (L): 2+ Mental Status: other (Patient arrived not alert and oriented x0 but after IV D50 given patient return to normal sensorium and was alert and oriented x3 with a 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: normal hearing, normal speech, PERRL Motor/Sensory: no motor deficit, no sensory deficit, no pronator drift, negative Babinski's sign DTR: bicep (R): 2+, bicep (L): 2+ Skin Exam: normal color, warm, dry, No rash SpO2 Interpretation: normal SpO2: 98 O2 Delivery: Room Air - Course Nursing assessment & vital signs reviewed: Yes EKG Interpreted by Me: RATE (EKG/normal sinus rhythm/rate 67/prolonged QTc/peaked T waves/marked artifact present/no acute ST segment changes/i nterpreted contemporaneously by ER physician) - CT Exams Head CT Interpretation: Discussed w/radiologist (No acute abnormality) Ordered Tests: Active Orders 24 hr Category Date Time Status HEAD WITHOUT CONTRAST [CT] Stat Exams 06/01/23 08:53 Completed ABG [ARTERIAL BLOOD GASES] Stat Lab 06/01/23 08:45 Completed Alcohol [ETHYL ALCOHOL] Stat Lab 06/01/23 08:55 Completed BMP Stat Lab 06/01/23 11:42 Completed CBC W DIFF Stat Lab 06/01/23 08:55 Completed CMP Stat Lab 06/01/23 08:55 Completed Glucose,Critical Care Stat Lab 06/01/23 08:45 Completed Lactic Acid Stat Lab 06/01/23 08:45 Completed POCT GLUCOSE Stat Lab 06/01/23 12:24 Completed PROTIME WITH INR Stat Lab 06/01/23 08:55 Completed PTT Stat Lab 06/01/23 08:55 Completed TROPONIN Q4H Lab 06/01/23 08:55 Completed Medication Summary Discontinued Medications Generic Name Dose Route Start Last Admin Trade Name Susy PRN Reason Stop Dose Admin Dextrose Confirm 06/01/23 08:47 Dextrose 50%-Water 50 Ml Abboject Administered 06/01/23 08:48 Dose 100 ml IV .STK-MED ONE Dextrose 50 ml 06/01/23 09:19 06/01/23 09:26 Dextrose 50%-Water 50 Ml Abboject IV 06/01/23 09:20 50 ml STAT ONE Administration Dextrose 50 ml 06/01/23 09:20 06/01/23 09:26 Dextrose 50%-Water 50 Ml Abboject IV 06/01/23 09:21 50 ml STAT ONE Administration Dextrose/Sodium Chloride 1,000 mls @ 100 mls/hr 06/01/23 09:00 06/01/23 09:25 Dextrose 5% -0.45 Nacl 1000 Ml IV 07/01/23 08:59 100 mls/hr .Q10H MORIAH Administration Sodium Chloride Confirm 06/01/23 08:54 Sodium Chloride 0.9% 1000 Ml Administered 06/01/23 08:55 Dose 1,000 mls @ ud .ROUTE .STK-MED ONE Heparin Sodium/Dextrose 25,000 units in 250 mls @ 0 mls/hr 06/01/23 09:00 Heparin 25,000 Units/D5w: Use Order Set Jacki IV 07/01/23 08:59 [facility] Protocol 12 UNITS/KG/HR Dextrose/Sodium Chloride Confirm 06/01/23 08:56 Dextrose 5% -0.45 Nacl 1000 Ml Administered 06/01/23 08:57 Dose 1,000 mls @ ud IV .STK-MED ONE Lab/Rad Data: Laboratory Result Diagrams 06/01/23 08:55 06/01/23 11:42 Laboratory Results 06/01/23 06/01/23 06/01/23 Range/Units 12:24 11:42 08:55 WBC (4.0-10.5) x10^3/uL RBC (4.1-5.6) x10^6/uL Hgb (12.5-18.0) g/dL Hct (42-50) % MCV (78-100) fL MCH (26-32) pg MCHC (32-36) g/dL RDW (11.5-14.0) % Plt Count (150-450) x10^3/uL MPV (7.5-11.0) fL Gran % (36.0-66.0) % Immature Gran % (Auto) (0.00-0.4) % Nucleat RBC Rel Count (0.00-0.1) % Eos # (Auto) (0-0.5) x10^3/uL Immature Gran # (Auto) (0.00-0.03) x10^3u/L Absolute Lymphs (auto) (1.0-4.6) x10^3/uL Absolute Monos (auto) (0.0-1.3) x10^3/uL Absolute Nucleated RBC (0.00-0.01) x10^3u/L Lymphocytes % (24.0-44.0) % Monocytes % (0.0-12.0) % Eosinophils % (0.00-5.0) % Basophils % (0.0-0.4) % Absolute Granulocytes (1.4-6.9) x10^3/uL Basophils # (0-0.4) x10^3/uL PT (9.4-12.5) SECONDS INR (0.8-3.0) APTT (25.1-36.5) SECONDS Puncture Site pCO2 (35-45) mmHg pO2 (75-100) mmHg Base Excess (-2.0-2.0) O2 Saturation (94-100) g/dF ABG pH (7.35-7.45) ABG HCO3 (22-28) ABG O2 Sat (Measured) (95-100) % Jeremiah Test A-a Gradient a/A Ratio Hemoglobin Carboxyhemoglobin (0.0-6.9) % THgb Methemoglobin (1.4-1.5) % Potassium 3.9 D (3.5-5.1) Glucose 96 (70-110) Temperature C POC O2 Flow Rate % Sodium 138 (137-145) mmol/L Chloride 106 (98-107) mmol/L Carbon Dioxide 26 (22-30) mmol/L Anion Gap 9.8 (5-15) MEQ/L BUN 12 (9-20) mg/dL Creatinine 0.89 (0.66-1.25) mg/dL Estimated GFR 100.6 ML/MIN POC Glucometer 169 H (74 to 106) mg/dL Lactic Acid (0.4-2.0) Calcium 9.2 (8.4-10.2) mg/dL Total Bilirubin (0.2-1.3) mg/dL AST (17-59) U/L ALT (0-50) U/L Alkaline Phosphatase (38-126) U/L Troponin I (0.000-0.034) ng/mL Serum Total Protein (6.3-8.2) g/dL Albumin (3.5-5.0) g/dL Ethyl Alcohol < 10 (0-10) mg/dL 06/01/23 06/01/23 06/01/23 Range/Units 08:55 08:55 08:55 WBC (4.0-10.5) x10^3/uL RBC (4.1-5.6) x10^6/uL Hgb (12.5-18.0) g/dL Hct (42-50) % MCV (78-100) fL MCH (26-32) pg MCHC (32-36) g/dL RDW (11.5-14.0) % Plt Count (150-450) x10^3/uL MPV (7.5-11.0) fL Gran % (36.0-66.0) % Immature Gran % (Auto) (0.00-0.4) % Nucleat RBC Rel Count (0.00-0.1) % Eos # (Auto) (0-0.5) x10^3/uL Immature Gran # (Auto) (0.00-0.03) x10^3u/L Absolute Lymphs (auto) (1.0-4.6) x10^3/uL Absolute Monos (auto) (0.0-1.3) x10^3/uL Absolute Nucleated RBC (0.00-0.01) x10^3u/L Lymphocytes % (24.0-44.0) % Monocytes % (0.0-12.0) % Eosinophils % (0.00-5.0) % Basophils % (0.0-0.4) % Absolute Granulocytes (1.4-6.9) x10^3/uL Basophils # (0-0.4) x10^3/uL PT 10.9 (9.4-12.5) SECONDS INR 1.00 (0.8-3.0) APTT 23.8 L (25.1-36.5) SECONDS Puncture Site pCO2 (35-45) mmHg pO2 (75-100) mmHg Base Excess (-2.0-2.0) O2 Saturation (94-100) g/dF ABG pH (7.35-7.45) ABG HCO3 (22-28) ABG O2 Sat (Measured) (95-100) % Jeremiah Test A-a Gradient a/A Ratio Hemoglobin Carboxyhemoglobin (0.0-6.9) % THgb Methemoglobin (1.4-1.5) % Potassium 3.1 L (3.5-5.1) Glucose 374 H (70-110) Temperature C POC O2 Flow Rate % Sodium 135 L (137-145) mmol/L Chloride 106 (98-107) mmol/L Carbon Dioxide 22 (22-30) mmol/L Anion Gap 10.1 (5-15) MEQ/L BUN 13 (9-20) mg/dL Creatinine 0.86 (0.66-1.25) mg/dL Estimated GFR 101.6 ML/MIN POC Glucometer (74 to 106) mg/dL Lactic Acid (0.4-2.0) Calcium 8.3 L (8.4-10.2) mg/dL Total Bilirubin 0.60 (0.2-1.3) mg/dL AST 44 (17-59) U/L ALT 36 (0-50) U/L Alkaline Phosphatase 164 H (38-126) U/L Troponin I < 0.012 (0.000-0.034) ng/mL Serum Total Protein 6.6 (6.3-8.2) g/dL Albumin 3.6 (3.5-5.0) g/dL Ethyl Alcohol (0-10) mg/dL 06/01/23 06/01/23 06/01/23 Range/Units 08:55 08:45 08:45 WBC 9.0 (4.0-10.5) x10^3/uL RBC 3.58 L (4.1-5.6) x10^6/uL Hgb 9.7 L (12.5-18.0) g/dL Hct 30.1 L (42-50) % MCV 84.1 (78-100) fL MCH 27.1 (26-32) pg MCHC 32.2 (32-36) g/dL RDW 15.8 H (11.5-14.0) % Plt Count 311 (150-450) x10^3/uL MPV 9.2 (7.5-11.0) fL Gran % 60.5 (36.0-66.0) % Immature Gran % (Auto) 0.3 (0.00-0.4) % Nucleat RBC Rel Count 0.0 (0.00-0.1) % Eos # (Auto) 0.26 (0-0.5) x10^3/uL Immature Gran # (Auto) 0.03 (0.00-0.03) x10^3u/L Absolute Lymphs (auto) 2.41 (1.0-4.6) x10^3/uL Absolute Monos (auto) 0.79 (0.0-1.3) x10^3/uL Absolute Nucleated RBC 0.00 (0.00-0.01) x10^3u/L Lymphocytes % 26.8 (24.0-44.0) % Monocytes % 8.8 (0.0-12.0) % Eosinophils % 2.9 (0.00-5.0) % Basophils % 0.7 (0.0-0.4) % Absolute Granulocytes 5.45 (1.4-6.9) x10^3/uL Basophils # 0.06 (0-0.4) x10^3/uL PT (9.4-12.5) SECONDS INR (0.8-3.0) APTT (25.1-36.5) SECONDS Puncture Site LEFT BRACHIAL pCO2 42 (35-45) mmHg pO2 256 H* (75-100) mmHg Base Excess 1.7 (-2.0-2.0) O2 Saturation 98.0 (94-100) g/dF ABG pH 7.41 (7.35-7.45) ABG HCO3 26.6 (22-28) ABG O2 Sat (Measured) 99.2 (95-100) % Jeremiah Test NOT APPLICABLE A-a Gradient 405 a/A Ratio 0.39 Hemoglobin 11.3 Carboxyhemoglobin 0.3 (0.0-6.9) % THgb Methemoglobin 0.9 L (1.4-1.5) % Potassium 3.2 L (3.5-5.1) Glucose 23 L* (70-110) Temperature 37.0 C POC O2 Flow Rate 100 % Sodium (137-145) mmol/L Chloride (98-107) mmol/L Carbon Dioxide (22-30) mmol/L Anion Gap (5-15) MEQ/L BUN (9-20) mg/dL Creatinine (0.66-1.25) mg/dL Estimated GFR ML/MIN POC Glucometer (74 to 106) mg/dL Lactic Acid (0.4-2.0) Calcium (8.4-10.2) mg/dL Total Bilirubin (0.2-1.3) mg/dL AST (17-59) U/L ALT (0-50) U/L Alkaline Phosphatase (38-126) U/L Troponin I (0.000-0.034) ng/mL Serum Total Protein (6.3-8.2) g/dL Albumin (3.5-5.0) g/dL Ethyl Alcohol (0-10) mg/dL 06/01/23 Range/Units 08:45 WBC (4.0-10.5) x10^3/uL RBC (4.1-5.6) x10^6/uL Hgb (12.5-18.0) g/dL Hct (42-50) % MCV (78-100) fL MCH (26-32) pg MCHC (32-36) g/dL RDW (11.5-14.0) % Plt Count (150-450) x10^3/uL MPV (7.5-11.0) fL Gran % (36.0-66.0) % Immature Gran % (Auto) (0.00-0.4) % Nucleat RBC Rel Count (0.00-0.1) % Eos # (Auto) (0-0.5) x10^3/uL Immature Gran # (Auto) (0.00-0.03) x10^3u/L Absolute Lymphs (auto) (1.0-4.6) x10^3/uL Absolute Monos (auto) (0.0-1.3) x10^3/uL Absolute Nucleated RBC (0.00-0.01) x10^3u/L Lymphocytes % (24.0-44.0) % Monocytes % (0.0-12.0) % Eosinophils % (0.00-5.0) % Basophils % (0.0-0.4) % Absolute Granulocytes (1.4-6.9) x10^3/uL Basophils # (0-0.4) x10^3/uL PT (9.4-12.5) SECONDS INR (0.8-3.0) APTT (25.1-36.5) SECONDS Puncture Site pCO2 (35-45) mmHg pO2 (75-100) mmHg Base Excess (-2.0-2.0) O2 Saturation (94-100) g/dF ABG pH (7.35-7.45) ABG HCO3 (22-28) ABG O2 Sat (Measured) (95-100) % Jeremiah Test A-a Gradient a/A Ratio Hemoglobin Carboxyhemoglobin (0.0-6.9) % THgb Methemoglobin (1.4-1.5) % Potassium (3.5-5.1) Glucose (70-110) Temperature C POC O2 Flow Rate % Sodium (137-145) mmol/L Chloride (98-107) mmol/L Carbon Dioxide (22-30) mmol/L Anion Gap (5-15) MEQ/L BUN (9-20) mg/dL Creatinine (0.66-1.25) mg/dL Estimated GFR ML/MIN POC Glucometer (74 to 106) mg/dL Lactic Acid 1.1 (0.4-2.0) Calcium (8.4-10.2) mg/dL Total Bilirubin (0.2-1.3) mg/dL AST (17-59) U/L ALT (0-50) U/L Alkaline Phosphatase (38-126) U/L Troponin I (0.000-0.034) ng/mL Serum Total Protein (6.3-8.2) g/dL Albumin (3.5-5.0) g/dL Ethyl Alcohol (0-10) mg/dL - Progress Progress Note: 06/01/23 13:13 Nursing note and vital signs reviewed. No food or housing insecurity is noted. All lab results reviewed and shared with patient. CT scan of head reviewed and shared with patient. Patient arrived minimally alert, oriented x0, in moderate to severe distress, but with a good airway, good oxygen saturation, and good blood pressure. IV access started immediately per nursing. Patient given 2 A of D50. Patient patient rushed to x-ray department for stat CT scan of head which was negative per Dr. Jacques. Patient's mentation gradually improved after D50 given. D5 half-normal saline ran at 100 mL an hour until patient's mentation returned totally to normal. Patient without focal weakness and normal neurologic exam after mentation returned to normal. Patient ate a carbohydrate meal in the ER. Glucose monitored throughout his ER stay without evidence of further hypoglycemia. Patient discharged in stable condition. Patient advised to take half of his normal Lantus dose tonight and also half of his normal NovoLog dose tonight and to monitor his blood glucose very closely. Patient also vies follow-up with his family MD. Medical Desision Making - Independent Historian Additional History obtained from: EMS - Diagnostic Testing Diagnostic test were ordered, analyzed, and reviewed by me: Yes Radiological Interpretation: Reviewed by me - Risk of complications The pt has a mod risk of morbidity or mortality based on: Need for prescription drug management - Departure Departure Disposition: Home Clinical Impression: Hypoglycemia Condition: Stable Critical Care Time: Yes Critical Care Time(excluding separately billable procedures): Critical 30-74 mins Referrals: HOSPITAL,'S [Primary Care Provider] - Follow up/PCP as directed Instructions: Low Blood Sugar, Adult (DC) Additional Instructions: Watch blood glucose level very closely. Take half of your usual Lantus dose tonight, and also take half of your usual NovoLog dose tonight. Return to ER as needed.
[2023-06-01 11:26] VITALS: BP 159/99; PULSE 58; RESP 19
[2023-06-01 12:05] LABS: ANION GAP 9.8 MEQ/L (5-15); Calcium 9.2 mg/dL (8.4-10.2); Creatinine 1 0.89 mg/dL (0.66-1.25); EST GLOMERULAR FILTRATION RATE 100.6 ML/MIN; Potassium 3.9 mmol/L (3.5-5.1)
[2023-06-01 12:16] VITALS: O2SAT 98
== END 2023-06-01 12:56 | disposition home or self-care (01) ==
LOC: ED 08:44
DX: E11.649 Type 2 diabetes mellitus with hypoglycemia without coma (principal); E78.5 Hyperlipidemia, unspecified; I10 Essential (primary) hypertension; Z79.4 Long term (current) use of insulin; Z79.899 Other long term (current) drug therapy; Z86.16 Personal history of COVID-19
CPT/HCPCS: 36415; 36600; 70450; 80048; 80053; 82077; 82375; 82803; 82947; 83605; 84484; 85025; 85610; 85730; 96374; 96376; 99284; 99291